=== PATIENT | male | born 1950 | race Caucasian/White ===

== ENCOUNTER 2018-12-10 09:54 | Emergency (ER) | payer MEDICARE ==
[~2018-12-10] VITALS: Ht 170.2 cm; Wt 77.1 kg
--- NOTE | 2018-12-10 10:00 | NUR ---
BIBRA 89 C/O R LEG WEAKNESS x 2DAYS. GLF LAST NIGHT AND THIS MORNING. AA/OX4, BREATHING EVEN AND UNLABORED, NO SOB NOTED. ATTACHED TO THE TRAINING OFFICER, CHANGED INTO GOWN. NO DSITRESS NOTED.
--- NOTE | 2018-12-10 10:02 | NUR ---
IV LINE ESTABLISHED, BLOOD DRAWN AND SENT TO LAB. URINAL GIVEN TO PATIENT FOR URINE COLLECTION, PER PATIENT "UNABLE TO GO AT THIS TIME"
[2018-12-10 10:12] LABS: BASOPHILS % (AUTO) 0.5 % (0.0-2.0); EOSINOPHILS % (AUTO) 1.7 % (0.0-6.0); HEMATOCRIT 50 % (39-51); HEMOGLOBIN 16.8 g/dL (13.5-17.5); LYMPHOCYTES # (AUTO) 2.3 /CMM (0.8-4.8); LYMPHOCYTES % (AUTO) 25.6 % (20.0-44.0); MEAN CORPUSCULAR HGB CONC 34 g/dl (31.0-36.0); MEAN CORPUSCULAR VOLUME 87 fL (80-96); MONOCYTES # (AUTO) 0.8 /CMM (0.1-1.30); MONOCYTES % (AUTO) 8.7 % (2.0-12.0); NEUTROPHILS # (AUTO) 5.7 /CMM (1.8-8.9); NEUTROPHILS % (AUTO) 63.5 % (43.0-81.0); PLATELET COUNT (AUTO) 218 /CMM (150-450); RED BLOOD CELL COUNT(AUTO) 5.71 MIL/uL (4.5-6.0)
[2018-12-10 10:21] LABS: CALCIUM, SERUM 8.8 mg/dL (8.5-10.1); CREATININE 1.3 mg/dL (0.6-1.3)
[2018-12-10 10:26] LABS: ALBUMIN 3.6 g/dL (3.4-5.0); BILIRUBIN,DIRECT 0.1 mg/dL (0.0-0.2); BILIRUBIN,TOTAL 0.6 mg/dL (0.2-1.0); TOTAL PROTEIN, SERUM 7.3 g/dL (6.4-8.2)
--- NOTE | 2018-12-10 11:04 | NUR ---
Patient does not wish to proceed with medical care recommended by Dr. Villagran. Patient given information related to possible complications, up to and including , which could occur as a result of leaving the hospital at this time. Patient verbalizes understanding of risks involved due to leaving against medical advice. Patient has signed AMA form.
[2018-12-10 11:09] VITALS: BP 176/93
== END 2018-12-10 11:10 | disposition left against medical advice (07) ==
LOC: ER 09:55
DX: R53.1 Weakness (principal); M25.551 Pain in right hip; R51 Headache; R42 Dizziness and giddiness; I10 Essential (primary) hypertension; E11.9 Type 2 diabetes mellitus without complications; W18.39XA Other fall on same level, initial encounter; Y93.89 Activity, other specified; Y92.89 Other specified places as the place of occurrence of the external cause; Y99.8 Other external cause status
CPT/HCPCS: 36415; 70450-TC; 71045-TC; 73502; 80048-TC; 80076-TC; 84484-TC; 85025-TC; 85730-TC

== ENCOUNTER 2021-05-03 10:17 | Inpatient (IN) | payer MEDICARE ==
[~2021-05-03] VITALS: Ht 170.2 cm; Wt 63.7 kg
--- NOTE | 2021-05-03 10:17 | NUR ---
PT [id number] HOME, FOUND IN FLOOR UNABLE TO GET UP/UNABLE TO PROVIDE SELF CARE. PT IS AAOX3, NOT IN RESPIRATORY DISTRESS, HOOKED TO BOOT LINER MAKER, KEPT RESTED AND COMFORTABLE. WILL CONTINUE TO MONITOR.
--- NOTE | 2021-05-03 10:50 | NUR ---
PT IS BACK FROM THE CT SCAN.
--- NOTE | 2021-05-03 10:55 | NUR ---
IV LINE ESTABLISHED BLOOD DRAWN AND SENT TO LAB.
[2021-05-03] MEDS ORDERED: IV NS 0.9% 1,000 ML BAG IV ONE (11:00)
--- NOTE | 2021-05-03 11:02 | NUR ---
URINAL GIVEN UNABLE TO PROVIDE URINE SPECIMEN THIS TIME.
[2021-05-03] MEDS ORDERED: GLIP2.5T3 PO (11:04)
[2021-05-03] MEDS ORDERED: LOSA25TA27 PO (11:04)
[2021-05-03] MEDS ORDERED: BICT1TAB PO (11:04)
[2021-05-03] MEDS ORDERED: SITA50TA PO (11:04)
--- NOTE | 2021-05-03 11:07 | NUR ---
URINE SPECIMEN COLLECTED AND SENT TO LAB.
[2021-05-03 11:39] LABS: BILIRUBIN,URINE MODERATE (NEGATIVE); COLOR,URINE DARK YELLOW (YELLOW); LEUKOCYTE ESTERASE ,URINE NEGATIVE (NEGATIVE); NITRITE, URINE NEGATIVE (NEGATIVE); PH,URINE 5.5 (5.0-8.0); PROTEIN,URINE 100 mg/dl (NEGATIVE); UGLUCOSE NEGATIVE (NEGATIVE)
[2021-05-03 11:40] LABS: BASOPHILS % (AUTO) 0.1 % (0.0-2.0); EOSINOPHILS % (AUTO) 0.2 % (0.0-6.0); HEMATOCRIT 50 % (39-51); HEMOGLOBIN 16.1 g/dL (13.5-17.5); LYMPHOCYTES # (AUTO) 0.9 K/uL (0.8-4.8); LYMPHOCYTES % (AUTO) 13.3 % (20.0-44.0); MEAN CORPUSCULAR HGB CONC 32 g/dl (31.0-36.0); MEAN CORPUSCULAR VOLUME 88 fL (80-96); MONOCYTES # (AUTO) 0.7 K/uL (0.1-1.30); NEUTROPHILS # (AUTO) 5.1 K/uL (1.8-8.9); NEUTROPHILS % (AUTO) 76.4 % (43.0-81.0); PLATELET COUNT (AUTO) 124 K/uL (150-450); RED BLOOD CELL COUNT(AUTO) 5.63 MIL/uL (4.5-6.0); WHITE BLOOD COUNT (AUTO) 6.7 K/uL (4.3-11.0)
[2021-05-03 11:54] LABS: SERUM AMMONIA < 10 umol/L (11-32)
[2021-05-03 11:56] LABS: ALANINE AMINOTRANSFERASE 39 U/L (12-78); ALBUMIN 3.3 g/dL (3.4-5.0); ALKALINE PHOSPHATASE 82 U/L (46-116); ASPARTATE AMINOTRANSFERASE 26 U/L (15-37); BILIRUBIN,DIRECT 0.9 mg/dL (0.0-0.2); BILIRUBIN,TOTAL 2.7 mg/dL (0.2-1.0); CARBON DIOXIDE 22 mmol/L (21-32); CHLORIDE 101 mmol/L (98-107); GLUCOSE 171 mg/dL (74-106); POTASSIUM 3.7 mmol/L (3.5-5.1); SODIUM SERUM 137 mmol/L (136-145); TOTAL PROTEIN, SERUM 6.8 g/dL (6.4-8.2); UREA NITROGEN, BLOOD 44 mg/dL (7-18)
[2021-05-03 11:58] LABS: ALCOHOL, BLOOD < 3 mg/dL (0-0)
[2021-05-03 12:25] LABS: RBC,URINE NONE SEEN /HPF (0-2); WBC,URINE 0-2 /HPF (0-3)
[2021-05-03 12:26] LABS: BACTERIA,URINE Rare /HPF (None Seen); SQUAMOUS EPITHELIAL CELL,UR Rare /HPF (None Seen)
[2021-05-03 12:42] LABS: THYROID STIMULATING HORMONE 4.737 uIU/mL (0.358-3.74)
--- NOTE | 2021-05-03 13:39 | NUR ---
[facility] CALLED SOAP INSPECTOR PAGED.
[2021-05-03] MEDS ORDERED: Z GUARD REMEDY 4 OZ OINT TP PRN (14:30)
[2021-05-03] MEDS ORDERED: ACETAMINOPHEN 325 MG TABLET PO PRN (14:30)
[2021-05-03] MEDS ORDERED: ONDANSETRON HCL/PF 4 MG/2 ML VIAL IVP PRN (14:30)
--- NOTE | 2021-05-03 14:57 | NUR ---
PER NURSING LINING BASTER. NO SITTER. DONT TRANSFER.
--- NOTE | 2021-05-03 15:04 | NUR ---
PER HOUSE SUP PT WILL BE ADMITTED NEXT SHIFT IN ROOM 326-1
--- NOTE | 2021-05-03 18:44 | NUR ---
Kristen sherman in ED - 05/03/21 at 1845 by CASSANDRA TROPONIN [phone]. NOTIFIED DENA ALLEN.
--- NOTE | 2021-05-03 18:45 | NUR ---
TROPONIN 0.493. NOTIFIED DENA ARANDA.
--- NOTE | 2021-05-03 19:46 | NUR ---
MRSA SWAB COLLECTED AND SENT TO LAB. PATIENT'S BELONGINGS LIST DONE.
[2021-05-03] MEDS ORDERED: DEXTROSE 50%-WATER 50 ML DISP.SYRIN IV PRN (20:00)
--- NOTE | 2021-05-03 20:03 | NUR ---
REPORT GIVEN TO NAHED ON THIRD FOOR. RM 326
--- NOTE | 2021-05-03 20:25 | NUR ---
PT WAS TRANSFERRE TO THIRD FLOOR UNDER ACLS
[2021-05-03 20:40] VITALS: BP 128/92
[2021-05-03] MEDS: HEPARIN SODIUM, PORCINE 5000 UNITS/1 ML VIAL SQ SCH (21:59)
[2021-05-03] MEDS: BLOOD SUGAR DIAGNOSTIC 1 EACH STRIP IN SCH (22:19)
[2021-05-03] MEDS: INSULIN REGULAR, HUMAN 100 UNIT/ML 3 ML VIAL SQ PRN (22:20)
--- NOTE | 2021-05-03 23:30 | NUR ---
Patient arrived to [facility] at 2030. A&Ox3, VS as follows: BP 128/92, HR 83, RR 19, Temp 97.6, O2 96% on RA and pt. denies pain. Patient does appear to have labored breathing though denies being SOB and O2 96% on RA. Put NC at bedside for PRN 2L if needed. Pt. weight 140.4 and appears cachexic is on 5150 hold for gravely disabled - pt. is disheveled and toenails overgrown and very dirty. Reports living alone on second story apartment, gets food delivered to house but reports not really having a support system despite brother living in [place]. Pupils equal and reactive to light. Severe weakness to BLE, mild weakness BUE. Fine crackles in base of lung otherwise clear. Heart rate and rhythm regular. Bowel sounds hypoactive. Reports last BM was day prior 05/02. Urine dark yellow and clear can use urinal. No s/s of hypo or hyperglycemic reactions. Denies chest pain. Patient requests to be DNR code status, will endorse to f/u with attending MD. Fine chopped diet d/t patient has no teeth. Fully vaccinated for covid but wishes not to receive flu or PNA vaccine. Reports only hx as DM2, htn, and HIV +. Patient has dry discolored skin to feet, scattered scabs to bilateral shins, skin tear to R knee, redness to navel/umbilicus, and scab to R hip. Wound care consult ordered. Patient oriented to unit protocols, call light, and bed controls. Educated to conserve energy after NSTEMI and maintain bedrest. Pt. agreed. Sitter d/t 5150 hold.
--- NOTE | 2021-05-03 23:35 | NUR ---
Patient requests to be DNR but FC until attending confirms and order placed. *amendment from initial assessment*
[2021-05-04 00:11] VITALS: BP 107/80
[2021-05-04 04:00] VITALS: BP 154/97
[2021-05-04 04:38] VITALS: BP 154/97
--- NOTE | 2021-05-04 06:07 | NUR ---
Patient has been A&Ox3, VSS overnight. SR in 70s and 80s overnight. Tried to get out of bed x1 but bed alarm went off for safety and staff was to assist patient too weak to even transfer to BSc with staff assist -pt. also educated about bedrest for cardiac energy conservation. Bed in lowest position, brakes locked, bed alarm turned back on. LAC #18G still patent and flushed. Denies any distress, looks SOB at times when awake though O2 sats are mid 90s -PRN O2 at bedside as needed.
[2021-05-04 06:21] LABS: BASOPHILS % (AUTO) 0.3 % (0.0-2.0); EOSINOPHILS % (AUTO) 0.5 % (0.0-6.0); HEMATOCRIT 50 % (39-51); LYMPHOCYTES # (AUTO) 1.1 K/uL (0.8-4.8); LYMPHOCYTES % (AUTO) 16.1 % (20.0-44.0); MEAN CORPUSCULAR HGB CONC 32 g/dl (31.0-36.0); MEAN CORPUSCULAR VOLUME 89 fL (80-96); MONOCYTES # (AUTO) 0.7 K/uL (0.1-1.30); NEUTROPHILS # (AUTO) 4.8 K/uL (1.8-8.9); NEUTROPHILS % (AUTO) 73.1 % (43.0-81.0); PLATELET COUNT (AUTO) 113 K/uL (150-450); RED BLOOD CELL COUNT(AUTO) 5.63 MIL/uL (4.5-6.0); WHITE BLOOD COUNT (AUTO) 6.6 K/uL (4.3-11.0)
[2021-05-04] MEDS: BLOOD SUGAR DIAGNOSTIC 1 EACH STRIP IN SCH ×4 (06:39→21:22)
[2021-05-04 07:02] LABS: ALANINE AMINOTRANSFERASE 34 U/L (12-78); ALKALINE PHOSPHATASE 85 U/L (46-116); ASPARTATE AMINOTRANSFERASE 24 U/L (15-37); BILIRUBIN,TOTAL 2.8 mg/dL (0.2-1.0); CALCIUM, SERUM 8.8 mg/dL (8.5-10.1); CARBON DIOXIDE 23 mmol/L (21-32); CHLORIDE 103 mmol/L (98-107); CREATININE 1.9 mg/dL (0.6-1.3); GLUCOSE 97 mg/dL (74-106); MAGNESIUM 2.3 mg/dL (1.8-2.4); POTASSIUM 3.9 mmol/L (3.5-5.1); SODIUM SERUM 137 mmol/L (136-145); TOTAL PROTEIN, SERUM 6.4 g/dL (6.4-8.2); UREA NITROGEN, BLOOD 42 mg/dL (7-18)
--- NOTE | 2021-05-04 08:08 | NUR ---
MS RN OPENING NOTES RECEIVED PATIENT IN BED, AWAKE, A/O X2, ON 5150 HOLD. PATIENT ON ROOM AIR; BREATHING EVEN AND UNLABORED AT THIS TIME; NO SOB NOTED. NO COMPLAINS OF PAIN. IV ACCESS AT LAC #18 PRESENT AND INTACT; SL. SAFETY PRECAUTIONS IN PLACE; BED IN LOW POSITION AND LOCKED, RAILS UP X2, CALL LIGHT WITHIN REACH. WILL CONTINUE TO MONITOR PATIENT.
--- NOTE | 2021-05-04 08:09 | NUR ---
TELE NOTES PATIENT IS ON TOOL AND CUTTER GRINDER WITH A CURRENT READING OF SR 86
[2021-05-04] MEDS: ASPIRIN EC 81 MG TABLET.DR PO SCH (08:34)
[2021-05-04] MEDS: HEPARIN SODIUM, PORCINE 5000 UNITS/1 ML VIAL SQ SCH ×2 (08:35→21:00)
[2021-05-04] MEDS: FAMOTIDINE/PF INJ 20 MG/2 ML VIAL IV SCH (08:37)
[2021-05-04 09:00] LABS: CHOLESTEROL 135 mg/dL (<200); HDL CHOLESTEROL 38 mg/dL (40-60); LDL 81 mg/dL (0-99); TRIGLYCERIDES 107 mg/dL (30-150)
[2021-05-04 09:24] VITALS: BP 149/76
--- NOTE | 2021-05-04 09:40 | NUR ---
CLINICAL OUTCOMES MANAGER NOTES ASKED PATIENT ON MULTIPLE OCCASIONS TO PUT LEADS BACK ON FOR TELE MONITORING. PATIENT REFUSES TELE MONITORING. PATIENT STATES HE DOES NOT CARE, WANTS TO GO HOME AND NEEDS HIS CLOTHES.
--- NOTE | 2021-05-04 10:51 | NUR ---
SS Consult: SS consult for poor living conditions, unable to care for self. Pt. Is a 70-year-old male. Pt. demonstrates adequate insight to the reason for hospitalization. Per pt., he/she was brought to hospital by ambulance. Pt. was oriented x3, alert, and cooperative. During interview, pt. was capable of following directions, made appropriate eye-contact, and appeared unkept, as evidenced by: messy hair. Pt.s speech was at a normal rate. Pt.s mood was elevated. SW explored pt.s hx of mental health and substance abuse. Pt. reported no hx of mental health, substance abuse, suicidal or homicidal ideation. Pt. denies auditory hallucinations, visual hallucinations, paranoia, or delusions. SW explored pt.s living situation. Per pt., he lives alone [[address] [place], [place] [id number] Per pt., he reports having adequate support from family, but they live on the [facility]. Pt. stated that he can care for self at home but needs a walker. Pt. stated that he will be buying one soon. Pt. mentioned that he drives himself around and does not have a caregiver. Pt. expressed that he wants to go home once discharged. Plan: SW provided available resources and pt. accepted. SW will be making an APS report due to self-neglect and no caregiver. Resources Provided: ABUSE PREVENTION: ELDER ABUSE HOTLINE (22/11) ADULT PROTECTIVE SERVICES HOTLINE LONG-TERM CARE [facility] Region AREA ON AGING (HOTLINE) ADULT DAY HEALTH CARE CARE CENTERS: Private pay or Medi-jared funded adult day care [place] Adult Day [facility] , [facility] Services , [facility] Adult Care Center , [facility] Adult [facility] Health Care , [facility] Adult Day Health Care , [facility] Adult [facility]care Center , [facility] , [place] [facility] , [place] ALZHEIMERS DISEASE/DEMENTIA: Alzheimers Association Helpline [facility] Chapter www.alz.org/[facility] Department of Aging www.lacity.org Family Caregiver [place] www.caregiver.org [place] Caregiver Resources Center/Family Support www.[facility].org CANCER RESOURCES: [place] Cancer Society www.cancer.org Cancer Support Community www.CancerSupportVvsb.org: CancerCare www.cancercare.org [facility] Cancer Support Center www.[facility].org [facility] HEALTH ASSOCIATIONS: AARP www.aarp.org ALS Association (ask for Nery) www.als.org [place] Diabetes Association www.diabetes.org [place] Heart Association www.heart.org Singapore[place] Lung Association www.lungusa.org Singaporean Parkinson Disease Association www.apdaparkinson.org Singaporean Archer , www.redcross.org Arthritis Foundation www.arthritis.org Crohns & Colitis Foundation of Singaporean www.ccfa.org/chapters/carri National Multiple Sclerosis Society www.nationalmssociety.org Myasthenia Gravis Foundation www.myasthenia-ca.org National Stroke Association www.stroke.org CONSERVATORSHIP & GUARDIANSHIP: AARP Nydia Cardenas Legal Services Center for Health Care Rights Eldercare Information and Referral Hand Straightener [facility]: [facility] Bar Referral Service [facility] Legal Services Office of the Public Guardian [place] EYESIGHT DISORDER RESOURCES: [place] Macular Degeneration Foundation [facility] www.[facility].org GRIEF AND BEREAVEMENT RESOURCES: The Gathering Place , [facility] THE THURMAN Connection , [facility] Bereavement Center , [place] HEARING DISORDER RESOURCES: [place] Telephone Access Program Deaf and Disabled Telecommunications Program www.ddtp.[facility].ca.gov HearRx Hearing Centers ([place]) Better Hearing Systems , [place] GLAD ([facility] Agency on Deafness) V/ TTY; Behavioral School Counselors , [facility] -low income hearing aid assistance www.Nexttpromedica defiance regional hospitalringfoundation.org [place] Hearing Care , [place] HELP AT HOME CAREGIVER SUPPORT: In Home Support Services (Must have Medi-Jared to be eligible) *Ask for a list of agencies that provide services to assist with care in the home. Local Senior Centers also have listings of care providers. HOME SAFETY MODIFICATIONS AND EQUIPMENT: Senior centers have additional referrals. [place] Housing and Community Investment Dept. Handyworker Program (low income) or Visit http://hcidla.[facility].org/pei-xccwfk-tg for more information National Seating and Mobility and/or ; Forever Active www.CanatuverSmartPill.SurveyGizmo Stay Home Safe www.Stayhomesafe.SurveyGizmo LIFE ALERT RESPONSE SYSTEM: förderbar GmbH. Die Fördermittelmanufaktur Services 287-964-1906 www. Coremetrics Life Alert 248-272-8223 www.Shanghai Xikui [employer] Technology Life Station [phone] www.NotaryActation.SurveyGizmo Safe Return 332-790-2637 www.alz.or/safereturn Cell Phones for Seniors www.Villij MEALS AND FOOD PROGRAMS: [place] Meals on Wheels [phone] [place] Meals on Wheels [phone] [facility] [phone] [place] to the Homebound [phone] [place] to the Homebound [phone] [facility] to the Homebound [phone] [facility] to the Homebound [phone] Brain Kye Driscoll [phone] [facility] [phone] ONE Generation [phone] [facility] [phone] [facility] [place] [phone] Meals on Wheels [phone] For all ages: $6.85/ meal w side. Delivered M-F from 10 am-1pm. Application and payment is done over the phone. Frozen meals available for weekends. Emergency Food [facility] [phone] [facility] Director Cloud Transformation [phone] [facility] [phone] [facility]- Brown bag lunches [phone] [facility] [phone] MEAL/GROCERY DELIVERY PROGRAMS: [facility] Clare Gourmet Meals [phone]- [facility] [phone]- [facility] Magic Kitchen [phone] Moms Meals [phone] (ask Marshall for Discount Select grocery stores may provide delivery. MEDICAL INSURANCE SUPPORT SERVICES: Center for Health Care Rights [phone] Health Insurance Counseling/Advocacy Programs (HICAP)-Must have Medicare. Offers counseling for Medi-Jared eligibility [phone] Department of Public Director Cloud Transformation [phone] www.[facility].ca.gov Medicare [phone] www.socialsecurity.org Social Security [phone] SENIOR ACTIVITY PROGRAMS: *Contact a local senior center, adult school, recreation facility or community [facility] for education, fitness, recreation, and social programs. Aquatic Therapy and Adapted Exercise programs through [facility] [phone] Encore at [facility] [phone] www.[facility]/encore U- Senior Friends [phone] [place] Senior Programs [phone] www.oasisnet.org Suddenly 65 www.zyptklao35.SurveyGizmo SENIOR CENTERS: [facility] [phone] [facility] [place] [phone] [facility] [phone] [facility] [phone] [facility] [phone] [facility] [phone] [facility] [phone] [facility] [phone] [facility] [phone] [facility] [phone] [facility] [phone] [facility] [phone] [facility] [phone] TRANSPORTATION: Local Guardian [facility] may have applications for transportation programs and additional resources. ACCESS Services [phone] Transportation for seniors and disabled persons 7 days a week requiring 254 hr. advance reservation. Must apply and register for program marvin eligible. CITY RIDE [phone] or [phone] Transportation for seniors and persons with ADA card/metro disabled card in the [facility]. M-F only. Must register for services. ONE GENERATION [phone] Serves 65 years + in conjunction with city ride program. Must be registered with both programs. A to B Transport [phone] Provides wheelchair/gurney van service. Adult Medical Transport [phone] Accepts [facility]-jared with prior authorization. Care Van [phone] Provides wheelchair Transport. [facility] Wide Transportation [phone] Provides gurney service Gentle Care [phone] Gurney Transport. All Town Transportation [phone] wheelchair & gurney transport D Transportation [phone] wheelchair & gurney transport [place] Non-Emergency Transport [phone] wheelchair & gurney transport Independent Living Center [phone] Short Term Transportation primarily for adults with disabilities on social security income. Nominal fee may apply and a reservation is required. [facility] Cab [phone] or [phone] [facility] [phone] [place] [address] Services [phone] For additional programs & services VETERANS RESOURCES: Submissions for Aid and Attendance should be done directly to Federal VA office locatd at : [address] [facility] [phone] National Caregiver Support Line [phone] Jared [facility] Veterans Services Field Office [phone] [place] Department of Affairs [phone] Pension Information [phone]
--- NOTE | 2021-05-04 11:22 | NUR ---
NUCLEAR POWER PLANT ENGINEER NOTES PATIENT REFUSES DVT PUMPS TO BE APPLIED. CHARGE NURSE MADE AWARE
--- NOTE | 2021-05-04 13:01 | NUR ---
ANABELLE reached out to Dr. Goodwin to see pt. He stated that Dr. Gay from Psych will see pt. later today.
--- NOTE | 2021-05-04 14:33 | NUR ---
PT REFUSED ECHOCARDIOGRAM. RN WAS ADVISED.
--- NOTE | 2021-05-04 14:40 | NUR ---
PHP MYSQL DEVELOPER NOTES PATIENT REFUSED ECHOCARDIOGRAM
[2021-05-04 16:04] VITALS: BP 145/106
--- NOTE | 2021-05-04 18:54 | NUR ---
MS RN CLOSING NOTES PATIENT REMAINS IN BED, AWAKE, A/O X3, ON 5150 HOLD, REALLY WANTS TO GO HOME. PATIENT ON ROOM AIR; BREATHING EVEN AND UNLABORED AT THIS TIME; NO SOB NOTED. NO COMPLAINS OF PAIN. REFUSES TELE MONITORING. IV ACCESS AT LAC #18 PRESENT AND INTACT; SL. ALL NEEDS ATTENDED DURING THE DAY. SAFETY PRECAUTIONS IN PLACE; BED IN LOW POSITION AND LOCKED, RAILS UP X2, CALL LIGHT WITHIN REACH. WILL ENDORSE TO FIELD MACHINIST NURSE FOR CAMILLE.
--- NOTE | 2021-05-04 19:49 | NUR ---
MILLER HELPER DISTILLERY OPENING NOTES RECEIVED PT IN BED, ASLEEP, AWAKENS TO VERBAL STIMULI. AOx2-3. ON RA AND TOLERATING WELL. NO SOB NOTED. NO S/SX OF RESPIRATORY DISTRESS NOTED. IV ACCESS IN LAC #20. IV IS INTACT, PATENT, AND FLUSHING WELL. TELE MONITOR REFUSED PER DAY NURSE. WILL ATTEMPT TO EDUCATE PATIENT. SAFETY PRECAUTIONS IN PLACE: BED IN LOWEST, LOCKED POSITION, SIDERAILS UPx2, AND BRAKES ON. TABLE AND CALL LIGHT WITHIN REACH. WILL CONTINUE TO MONITOR.
[2021-05-04 20:45] VITALS: BP 145/86
--- NOTE | 2021-05-04 21:22 | NUR ---
DOCTOR ELEONORA AT BEDSIDE, ASSESSING PATIENT, PATIENT IS ANGRY AND REPEATS "HE WANTS TO SLEEP. LEAVE ME ALONE". ANGRY HOSTILE AND CONFUSED
[2021-05-05 01:25] VITALS: BP 123/92
[2021-05-05 04:47] VITALS: BP 135/91
[2021-05-05] MEDS: BLOOD SUGAR DIAGNOSTIC 1 EACH STRIP IN SCH ×4 (06:35→22:05)
--- NOTE | 2021-05-05 06:44 | NUR ---
ELASTIC ATTACHER OVERLOCK CLOSING NOTES PT IN BED, AWAKE. AOx2-3. ON RA AND TOLERATING WELL. NO SOB NOTED. NO S/SX OF RESPIRATORY DISTRESS NOTED. IV ACCESS IN LAC #20. IV IS INTACT, PATENT, AND FLUSHING WELL. TELE MONITOR REFUSED. ALL NEEDS MET. PT KEPT CLEAN AND DRY. SAFETY PRECAUTIONS IN PLACE: BED IN LOWEST, LOCKED POSITION, SIDERAILS UPx2, AND BRAKES ON. TABLE AND CALL LIGHT WITHIN REACH. WILL ENDORSE TO ONCOMING SHIFT FOR CAMILLE.
--- NOTE | 2021-05-05 07:44 | NUR ---
MS RN OPENING NOTES RECEIVED PATIENT SEATED IN BED, AWAKE, A/O X2, ON 5150 HOLD, WANTS TO GO HOME. PATIENT ON ROOM AIR; BREATHING EVEN AND UNLABORED AT THIS TIME; SLIGHT SOB BUT SAYS HE IS OK. NO COMPLAINS OF PAIN. IV ACCESS AT LAC #18 PRESENT AND INTACT; SL. SAFETY PRECAUTIONS IN PLACE; BED IN LOW POSITION AND LOCKED, RAILS UP X2, CALL LIGHT WITHIN REACH. WILL CONTINUE TO MONITOR PATIENT.
--- NOTE | 2021-05-05 07:51 | NUR ---
WOUND CARE CONSULT: PT REFUSED SKIN ASSESSMENT EXCEPT FOR LIMITED ASSESSMENT OF RT KNEE WHICH PRESENTS WITH DRY SCRATCH/ABRASION, PRESENT ON ADMISSION. NO DRAINAGE, TENDERNESS OR ERYTHEMA NOTED. ADMISSION PHOTOS INDICATE EXTREMELY LONG TOENAILS. DPM CONSULT REQUESTED FROM DR HAMPAPUR. ALLEN IN AGREEMENT WITH PLAN OF CARE.
[2021-05-05] MEDS: risperiDONE 1 MG TABLET PO SCH ×2 (08:13→20:33)
[2021-05-05] MEDS: FAMOTIDINE/PF INJ 20 MG/2 ML VIAL IV SCH (08:13)
[2021-05-05] MEDS: ASPIRIN EC 81 MG TABLET.DR PO SCH (08:13)
[2021-05-05] MEDS: HEPARIN SODIUM, PORCINE 5000 UNITS/1 ML VIAL SQ SCH ×2 (08:20→20:41)
[2021-05-05 08:51] LABS: BASOPHILS % (AUTO) 0.2 % (0.0-2.0); EOSINOPHILS % (AUTO) 0.4 % (0.0-6.0); HEMATOCRIT 52 % (39-51); HEMOGLOBIN 16.8 g/dL (13.5-17.5); LYMPHOCYTES # (AUTO) 1.5 K/uL (0.8-4.8); MEAN CORPUSCULAR HGB CONC 33 g/dl (31.0-36.0); MEAN CORPUSCULAR VOLUME 89 fL (80-96); MONOCYTES # (AUTO) 0.6 K/uL (0.1-1.30); MONOCYTES % (AUTO) 8.1 % (2.0-12.0); NEUTROPHILS # (AUTO) 5.4 K/uL (1.8-8.9); NEUTROPHILS % (AUTO) 71.3 % (43.0-81.0); PLATELET COUNT (AUTO) 122 K/uL (150-450); RED BLOOD CELL COUNT(AUTO) 5.79 MIL/uL (4.5-6.0); WHITE BLOOD COUNT (AUTO) 7.5 K/uL (4.3-11.0)
[2021-05-05 08:53] LABS: CALCIUM, SERUM 9.5 mg/dL (8.5-10.1); CARBON DIOXIDE 19 mmol/L (21-32); CHLORIDE 102 mmol/L (98-107); CREATININE 1.9 mg/dL (0.6-1.3); GLUCOSE 121 mg/dL (74-106); MAGNESIUM 2.7 mg/dL (1.8-2.4); PHOSPHORUS 3.9 mg/dL (2.5-4.9); SODIUM SERUM 138 mmol/L (136-145); UREA NITROGEN, BLOOD 45 mg/dL (7-18)
--- NOTE | 2021-05-05 18:57 | NUR ---
MS RN CLOSING NOTES PATIENT REMAINS IN BED, AWAKE, A/O X2, ON 5150 HOLD, WANTS TO GO HOME. PATIENT ON ROOM AIR; BREATHING EVEN AND UNLABORED DURING SHIFT. NO COMPLAINS OF PAIN. IV ACCESS AT L HAND G # 22 PRESENT AND INTACT; SL. ALL NEEDS ATTENDED DURING THE DAY. SAFETY PRECAUTIONS IN PLACE; BED IN LOW POSITION AND LOCKED, RAILS UP X2, CALL LIGHT WITHIN REACH. WILL ENDORSE TO REEL WORKER NURSE FOR CAMILLE.
[2021-05-05 20:00] VITALS: BP 134/87
[2021-05-06 04:00] VITALS: BP 129/76
--- NOTE | 2021-05-06 06:28 | NUR ---
RN NOTES: PATIENT REMAINS IN BED, AWAKE, A/O X2, ON 5150 HOLD, NO ACUTE DISTRESS NOTED, WANTS TO GO HOME. PATIENT ON ROOM AIR; BREATHING EVEN AND UNLABORED DURING SHIFT. NO COMPLAINS OF PAIN. IV ACCESS AT L HAND G # 22 PRESENT AND INTACT SL. ALL NEEDS ATTENDED DURING THE DAY. SAFETY PRECAUTIONS IN PLACE, 1:1 SITTER AT BED SIDE FOR PT. SAFETY ,CALL LIGHT WITHIN REACH. WILL ENDORSE TO DAY NURSE FOR CONTUITY WITH CARE.
[2021-05-06] MEDS: INSULIN REGULAR, HUMAN 100 UNIT/ML 3 ML VIAL SQ PRN ×2 (06:58→22:10)
[2021-05-06] MEDS: BLOOD SUGAR DIAGNOSTIC 1 EACH STRIP IN SCH ×4 (06:59→22:08)
--- NOTE | 2021-05-06 07:25 | NUR ---
MS RN OPENING NOTE RECEIVED PATIENT ON BED, ALERT/ORIENTED X 2-3. PT ABLE TO MAKE NEEDS KNOWN. WITH SITTER AT BEDSIDE. PATIENT CURRENTLY ON 5150 HOLD. PT STABLE ON ROOM AIR, WITH EQUAL AND UNLABORED BREATHING. WITH LEFT HAND IV ACCESS G 22, ON SALINE LOCK PATENT AND INTACT. SAFETY MEASURES ENSURED WITH CALL LIGHT WITHIN REACH, SIDE RAILS UP X 2, BED LOCKED IN LOW POSITION. WILL CONTINUE TO MONITOR PATIENT
[2021-05-06] MEDS: risperiDONE 1 MG TABLET PO SCH ×2 (09:29→21:52)
[2021-05-06] MEDS: ASPIRIN EC 81 MG TABLET.DR PO SCH (09:29)
[2021-05-06] MEDS: FAMOTIDINE (20 MG) 20 MG TABLET PO SCH (09:29)
[2021-05-06] MEDS: HEPARIN SODIUM, PORCINE 5000 UNITS/1 ML VIAL SQ SCH ×2 (09:33→21:52)
--- NOTE | 2021-05-06 10:27 | NUR ---
APS Report Intake #[id number]
--- NOTE | 2021-05-06 17:00 | NUR ---
MS RN NOTE PATIENT WITH ORDER FOR DISCHARGE BUT UNABLE TO STAND ON HIS OWN. DR. MILLS NOTIFIED WITH ORDER FOR PT RE-EVALUATION PRIOR TO DISCHARGE. WILL CONTINUE TO MONITOR PATIENT.
[2021-05-06] MEDS: FUROSEMIDE 20 MG TABLET PO SCH (18:19)
[2021-05-06] MEDS: CARVEDILOL 3.125 MG TABLET PO SCH (18:19)
--- NOTE | 2021-05-06 18:45 | NUR ---
MS RN CLOSING NOTE PATIENT ON BED, ALERT/ORIENTED X 2-3. PT ABLE TO MAKE NEEDS KNOWN. WITH SITTER AT BEDSIDE. PT STABLE ON ROOM AIR, WITH EQUAL AND UNLABORED BREATHING. REMOVED IV ACCESS. COVERED WITH DRY DRESSING. PATIENT FOR PT RE-EVALUATION ORDERED. PATIENT SEEN BY DR. PRINCE WITH MEDICATION ORDERS BUT PATIENT REFUSED TO TAKE IT. VERBALIZED UNDERSTANDING OF REPERCUSSIONS OF REFUSING MEDICATIONS. SAFETY MEASURES ENSURED WITH CALL LIGHT WITHIN REACH, SIDE RAILS UP X 2, BED LOCKED IN LOW POSITION. WILL CONTINUE TO MONITOR PATIENT
--- NOTE | 2021-05-06 19:25 | NUR ---
MS RN OPENING NOTES PATIENT LAYING AWAKE IN BED. A/OX2-3 PATIENT WITH REGULAR AND UNLABORED BREATHING ON ROOM AIR TOLERATED WELL. NO SIGNS AND SYMPTOMS OF DISTRESS NOTED. NO COMPLAINS OF PAIN OR DISCOMFORT AT THIS TIME. SAFETY PRECAUTIONS ENFORCED WITH BED LOCKED AND AT LOWEST POSITION. CALL LIGHT WITHIN REACH AT ALL TIMES WILL CONTINUE TO MONITOR PATIENT.
[2021-05-07] MEDS: BLOOD SUGAR DIAGNOSTIC 1 EACH STRIP IN SCH ×5 (06:37→22:00)
--- NOTE | 2021-05-07 07:54 | NUR ---
MS VASQUEZ OPENING NOTES PATIENT LAYING AWAKE IN BED. A/OX2-3 PATIENT WITH REGULAR AND UNLABORED BREATHING ON ROOM AIR TOLERATED WELL. NO SIGNS AND SYMPTOMS OF DISTRESS NOTED. NO COMPLAINS OF PAIN OR DISCOMFORT AT THIS TIME. SAFETY PRECAUTIONS ENFORCED WITH BED LOCKED AND AT LOWEST POSITION. CALL LIGHT WITHIN REACH AT ALL TIMES WILL CONTINUE TO MONITOR PATIENT. Addendum: 05/07/21 at 0755 by FRANCISCO WALL RN MS VASQUEZ CLOSING NOTES
--- NOTE | 2021-05-07 08:00 | NUR ---
RN OPENING NOTE PT IN BED COMFORTABLY. NO DISTRESS NOTED. NO PAIN NOTED. SAFETY MEASURES IN PLACE. SIDE RAILS RAISED. BED LOWERED. CALL LIGHT WITHIN REACH. WILL CONTINUE TO MONITOR.
[2021-05-07] MEDS: CARVEDILOL 3.125 MG TABLET PO SCH ×2 (09:00→17:19)
[2021-05-07] MEDS: ASPIRIN EC 81 MG TABLET.DR PO SCH (09:00)
[2021-05-07] MEDS: FUROSEMIDE 20 MG TABLET PO SCH (09:00)
[2021-05-07] MEDS: risperiDONE 1 MG TABLET PO SCH ×2 (09:00→21:19)
[2021-05-07] MEDS: HEPARIN SODIUM, PORCINE 5000 UNITS/1 ML VIAL SQ SCH ×2 (09:00→21:21)
[2021-05-07] MEDS: FAMOTIDINE (20 MG) 20 MG TABLET PO SCH (09:00)
--- NOTE | 2021-05-07 11:23 | NUR ---
ANABELLE received call from APS workerPancho requesting if pt. was still in house and DC plan. ANABELLE addressed Pancho's questions. Pancho stated she will try to visit patient or speak with them over the phone. Noted. ANABELLE will remain available as needed.
[2021-05-07] MEDS: INSULIN REGULAR, HUMAN 100 UNIT/ML 3 ML VIAL SQ PRN (17:19)
--- NOTE | 2021-05-07 19:48 | NUR ---
RN CLOSING NOTE PT IN BED COMFORTABLY. NO DISTRESS NOTED. NO PAIN NOTED. SAFETY MEASURES IN PLACE. SIDE RAILS RAISED. BED LOWERED. CALL LIGHT WITHIN REACH. REPORT GIVEN TO NIGHT NURSE FOR CAMILLE
[2021-05-07 20:00] VITALS: BP 128/79
--- NOTE | 2021-05-07 20:00 | NUR ---
EMBEDDED SOFTWARE DEVELOPER NOTES PT REFUSING TO HAVE TELE MONITOR ON. EXPLAINED TO PT IMPORTANCE OF TELE MONITORING IN HIS POC BUT PT STILL REFUSED. WILL CONTINUE TO MONITOR.
--- NOTE | 2021-05-07 22:00 | NUR ---
PHYSICIST LIGHT AND OPTICS NOTES PT REFUSING TO HAVE BS CHECKED. EXPLAINED TO PT IMPORTANCE OF BS CHECK IN HIS POC BUT PT STILL REFUSED. WILL CONTINUE TO MONITOR.
[2021-05-08] VITALS: BP 123/85
[2021-05-08 04:00] VITALS: BP 128/82
--- NOTE | 2021-05-08 06:49 | NUR ---
MS RN NOTES AWAKE & RESPONSIVE. NOT IN ANY DISTRESS. NO SOB NOTED. DENIES ANY PAIN OR DISCOMFORT AT THIS TIME. AM CARE DONE. MONITORED ACCORDINGLY. CALL LIGHT WITHIN REACH. BED IN LOWEST POSITION. SR UP X 3 WITH BED ALARM ON FOR SAFETY. WILL ENDORSE TO NEXT SHIFT.
[2021-05-08] MEDS: BLOOD SUGAR DIAGNOSTIC 1 EACH STRIP IN SCH ×4 (07:28→21:35)
--- NOTE | 2021-05-08 07:30 | NUR ---
RN OPENING NOTES PT IN BED AWAKE, A&O X2-3. NO PAIN VERBALIZED AT THIS TIME. EQUAL CHEST EXPANSION WITH NO S/S OF RESPIRATORY DISTRESS. SAFETY MEASURES IN PLACE: SIDE RAILS RAISED X2, BED LOWEST POSITION, CALL LIGHT WITHIN REACH. WILL CONTINUE TO MONITOR PATIENT THROUGHOUT SHIFT.
[2021-05-08 08:22] VITALS: BP 121/86
[2021-05-08] MEDS: FUROSEMIDE 20 MG TABLET PO SCH (09:29)
[2021-05-08] MEDS: FAMOTIDINE (20 MG) 20 MG TABLET PO SCH (09:30)
[2021-05-08] MEDS: risperiDONE 1 MG TABLET PO SCH ×2 (09:30→21:00)
[2021-05-08] MEDS: CARVEDILOL 3.125 MG TABLET PO SCH ×2 (09:30→17:22)
[2021-05-08] MEDS: ASPIRIN EC 81 MG TABLET.DR PO SCH (09:30)
[2021-05-08] MEDS: HEPARIN SODIUM, PORCINE 5000 UNITS/1 ML VIAL SQ SCH ×2 (09:33→21:00)
[2021-05-08 12:06] VITALS: BP 123/89
[2021-05-08] MEDS: INSULIN REGULAR, HUMAN 100 UNIT/ML 3 ML VIAL SQ PRN (12:25)
[2021-05-08 16:08] VITALS: BP 114/86
--- NOTE | 2021-05-08 18:59 | NUR ---
RN CLOSING NOTES PT IN BED AWAKE, A&O X2-3. NO PAIN VERBALIZED AT THIS TIME. EQUAL CHEST EXPANSION WITH NO S/S OF RESPIRATORY DISTRESS. PT REFUSES TO HAVE IV ACCESS. SAFETY MEASURES IN PLACE: SIDE RAILS RAISED X2, BED LOWEST POSITION, CALL LIGHT WITHIN REACH. WILL ENDORSE TO ROUGHING MILL OPERATOR NURSE FOR CAMILLE
[2021-05-08 20:00] VITALS: BP 122/92
--- NOTE | 2021-05-08 20:27 | NUR ---
TELE OPENING RN NOTE PATIENT AWAKE IN BED. A/OX3. NO S/S OF DISTRESS, BREATHING SYMMETRICAL. TELE PVC 110. SAFETY MEASURES IN PLACE: BED AT LOWEST POSITION, RAILS UP X2, CALL LI WITHIN REACH. WILL CONTINUE TO MONITOR. Addendum: 05/08/21 at 2029 by JOÃO RAMIREZ RN WRONG PATIENT.
--- NOTE | 2021-05-08 20:30 | NUR ---
TELE OPENING RN NOTE PATIENT ASLEEP IN BED. A/OX3. NO S/S OF DISTRESS, BREATHING SYMMETRICAL. TELE IS STILL BEING REFUSED PER PREVIOUS SHIFT NURSE'S ENDORSEMENT. WILL ATTEMPT TO RE-EDUCATE PATIENT AND ENCOURAGE HIM TO USE TELE MONITOR. SAFETY MEASURES IN PLACE: BED AT LOWEST POSITION, RAILS UP X2, CALL LI WITHIN REACH. WILL CONTINUE TO MONITOR.
[2021-05-09] VITALS: BP 131/74
--- NOTE | 2021-05-09 06:07 | NUR ---
DIRECTOR OF CAPITAL GIVING CLOSING NOTE PATIENT IS ASLEEP IN BED. A/OX2. NO S/S OF DISTRESS; BREATHING SYMMETRICAL. PATIENT WAS EDUCATED AND ENCOURAGED TO WEAR A TELE MONITOR, BUT HE CONTINUED TO DECLINE. PATIENT WAS MONITORED CLOSELY, HAVING MOVED MY BED TO HIS ROOM'S DOORWAY. PATIENT EXHIBITED NO S/S OF DISTRESS; NO ADVENTITIOUS DEVELOPMENTS OCCURRED. SAFETY MEASURES IN PLACE: BED AT LOWEST POSITION, RAILS UP X2, CALL LI WITHIN REACH. WILL ENDORSE TO NEXT SHIFT FOR [place].
[2021-05-09 06:12] VITALS: BP 130/78
[2021-05-09] MEDS: BLOOD SUGAR DIAGNOSTIC 1 EACH STRIP IN SCH ×4 (06:38→21:27)
--- NOTE | 2021-05-09 07:25 | NUR ---
SECURITIES SALES ASSOCIATE OPENING NOTES RECEIVED PT ASLEEP IN BED, EASILY AROUSABLE. HOB ELEVATED. A/O X2. ABLE TO MAKE NEEDS KNOWN, NO C/O PAIN AT THIS TIME. ON ROOM AIR, BREATHING EVEN AND UNLABORED. PT REFUSED TELE-MONITOR DESPITE EDUCATING THE IMPORTANCE OF IT, TELE-BOX ON STANDBY. PT HAS NO IV ACCESS AND REFUSING IV INSERTION. SAFETY MEASURES IN PLACE: BED AT LOWEST LOCKED POSITION, SIDE-RAILS UP X2, BED ALARM ON AND CALL LI WITHIN REACH. WILL CONTINUE TO MONITOR PATIENT ACCORDINGLY.
[2021-05-09 08:00] VITALS: BP 104/60
[2021-05-09] MEDS: ASPIRIN EC 81 MG TABLET.DR PO SCH (08:25)
[2021-05-09] MEDS: FUROSEMIDE 20 MG TABLET PO SCH (08:25)
[2021-05-09] MEDS: FAMOTIDINE (20 MG) 20 MG TABLET PO SCH (08:25)
[2021-05-09] MEDS: CARVEDILOL 3.125 MG TABLET PO SCH ×2 (08:26→17:21)
[2021-05-09] MEDS: risperiDONE 1 MG TABLET PO SCH ×2 (08:27→21:00)
[2021-05-09] MEDS: HEPARIN SODIUM, PORCINE 5000 UNITS/1 ML VIAL SQ SCH ×2 (08:34→21:00)
[2021-05-09] MEDS: INSULIN REGULAR, HUMAN 100 UNIT/ML 3 ML VIAL SQ PRN (11:49)
[2021-05-09 16:00] VITALS: BP 136/90
--- NOTE | 2021-05-09 18:28 | NUR ---
RN NOTES SPOKED TO PT REGARDING WHO CAN BRING HIS HOME MED "[facility]" AND HE STATED THAT NO ONE CAN BRING HIM AT THIS TIME. HE ALSO COULDN'T REMEMBER TELEPHONE NUMBERS OF HIS FAMILY MEMBERS AND FRIENDS AT THIS TIME.
--- NOTE | 2021-05-09 18:50 | NUR ---
MORTICIAN INVESTIGATOR CLOSING NOTES PT IN BED AWAKE WATCHING TV AT THIS TIME. A/O X2-3. ABLE TO MAKE NEEDS KNOWN. ON ROOM AIR, BREATHING EVEN AND UNLABORED, NO SOB NOTED DURING SHIFT. PT STILL REFUSED TELE-MONITOR DESPITE EDUCATING THE IMPORTANCE OF IT, TELE-BOX ON STANDBY. PT HAS NO IV ACCESS AND REFUSING IV INSERTION. ALL DUE NURSING CARE RENDERED AND MAINTAINED. SAFETY MEASURES IN PLACED: BED AT LOWEST LOCKED POSITION, SIDE-RAILS UP X2, BED ALARM ON AND CALL LI WITHIN REACH. WILL ENDORSE [place] TO PROVIDER RELATIONS REPRESENTATIVE NURSE.
--- NOTE | 2021-05-09 19:21 | NUR ---
RN OPENING NOTE PATIENT IN BED, AWAKE. A/O X 2 AT THIS TIME. PATIENT IS ON RA, TOLERATING WELL. NO SOB OR RESPIRATORY DISTRESS. TELE MONITOR NOT ON PATIENT REFUSING. NO IV ACCESS NOTED EITHER. NO REPORTS OF ANY PAIN. SAFETY MEASURES IN PLACE: BED LOCKED AND IN LOWEST POSITION, CALL LIGHT WITHIN REACH, SIDE RAILS UP, BED ALARM ON. ENCOURAGED PATIENT NOT TO GET UP ON HIS OWN. WILL MONITOR PATIENT CLOSELY.
--- NOTE | 2021-05-09 21:27 | NUR ---
RN NOTE PATIENT REFUSED HEPARIN, RISPERIDONE, AND ACCU CHECK. EDUCATION PROVIDED REGARDING MEDICATION AND THE NEED FOR BS MONITORING. PATIENT CONTINUES TO REFUSE.
--- NOTE | 2021-05-10 06:46 | NUR ---
RN CLOSING NOTE PATIENT IN BED, AWAKE. PATIENT REFUSED ACCUCHECK AT THIS TIME. RISK AND BENEFITS EXPLAINED, CONTINUES TO REFUSE AND YELLS. PATIENT 95% ON RA, TOLERATES WELL. PATIENT HAS TELE MONITOR ON STAND BY AND NO IV ACCESS PATIENT CONTINUES TO REFUSE. SAFETY MEASURES IMPLEMENTED. EDUCATION REGARDING POC GIVEN. WILL ENDORSE TO DAY SHIFT NURSE FOR [place].
[2021-05-10] MEDS: BLOOD SUGAR DIAGNOSTIC 1 EACH STRIP IN SCH ×4 (07:30→22:00)
--- NOTE | 2021-05-10 07:45 | NUR ---
TELE/RN OPENING NOTE RECEIVED PATIENT IN BED, AWAKE. PATIENT IS STILL REFUSING ACCUCHECK AT THIS TIME. RISK AND BENEFITS EXPLAINED, CONTINUES TO REFUSE AND YELLS. PATIENT HAS TELE MONITOR ON STAND BY AND NO IV ACCESS PATIENT CONTINUES TO REFUSE. SAFETY MEASURES IN PLACED: BED LOCKED ON LOWEST POSITION, SIDE RAILS UPX2, CALL LIGHT WITHIN REACH. WILL CONTINUE TO MONITOR.
[2021-05-10 08:43] VITALS: BP 130/85
[2021-05-10] MEDS: HEPARIN SODIUM, PORCINE 5000 UNITS/1 ML VIAL SQ SCH ×2 (08:47→20:24)
[2021-05-10] MEDS: risperiDONE 1 MG TABLET PO SCH ×2 (08:47→20:20)
[2021-05-10] MEDS: CARVEDILOL 3.125 MG TABLET PO SCH ×2 (08:48→16:55)
[2021-05-10] MEDS: ASPIRIN EC 81 MG TABLET.DR PO SCH (08:48)
[2021-05-10] MEDS: FAMOTIDINE (20 MG) 20 MG TABLET PO SCH (08:48)
[2021-05-10] MEDS: FUROSEMIDE 20 MG TABLET PO SCH (08:48)
--- NOTE | 2021-05-10 13:09 | NUR ---
TELE/RN NOTES- REFUSED INSULIN COVERAGE ACCUCHECK RESULT IS 152 WITH 2 UNITS REGULAR INSULIN BUT PATIENT REFUSED. EXPLAINED BENEFITS, STILL REFUSED. WILL MONITOR.
[2021-05-10 15:08] LABS: BASOPHILS % (AUTO) 0.2 % (0.0-2.0); EOSINOPHILS % (AUTO) 0.1 % (0.0-6.0); HEMATOCRIT 51 % (39-51); HEMOGLOBIN 16.3 g/dL (13.5-17.5); LYMPHOCYTES # (AUTO) 0.7 K/uL (0.8-4.8); LYMPHOCYTES % (AUTO) 12.7 % (20.0-44.0); MEAN CORPUSCULAR HGB CONC 32 g/dl (31.0-36.0); MEAN CORPUSCULAR VOLUME 89 fL (80-96); MONOCYTES # (AUTO) 0.5 K/uL (0.1-1.30); MONOCYTES % (AUTO) 8.6 % (2.0-12.0); NEUTROPHILS # (AUTO) 4.2 K/uL (1.8-8.9); NEUTROPHILS % (AUTO) 78.4 % (43.0-81.0); PLATELET COUNT (AUTO) 105 K/uL (150-450); RED BLOOD CELL COUNT(AUTO) 5.78 MIL/uL (4.5-6.0); WHITE BLOOD COUNT (AUTO) 5.4 K/uL (4.3-11.0)
[2021-05-10 16:00] VITALS: BP 127/78
--- NOTE | 2021-05-10 19:14 | NUR ---
TELE/RN CLOSING NOTE PATIENT IN BED, AWAKE. PATIENT HAS TELE MONITOR ON STAND BY AND NO IV ACCESS PATIENT CONTINUES TO REFUSE. ALL NEEDS MET. KEPT PATIENT COMFORTABLE. SAFETY MEASURES IN PLACED: BED LOCKED ON LOWEST POSITION, SIDE RAILS UPX2, CALL LIGHT WITHIN REACH. WILL ENDORSE TO THE NEXT SHIFT FOR [place].
--- NOTE | 2021-05-10 19:35 | NUR ---
RN OPENING NOTES RECEIVED PT IN BED, AWAKENS TO VERBAL STIMULI. AOx2-3, ABLE TO MAKE NEEDS KNOWN. ON RA AND TOLERATING. NO SOB NOTED. NO S/SX OF RESPIRATORY DISTRESS NOTED. PATIENT REFUSES IV ACCESS AND TELE MONITOR. SAFETY PRECAUTIONS IN PLACE: BED IN LOWEST, LOCKED POSITION, SIDERAILS UPx2, AND BRAKES ON. TABLE AND CALL LIGHT WITHIN REACH. WILL CONTINUE TO MONITOR.
[2021-05-10 20:00] VITALS: BP 126/76
[2021-05-11] VITALS: BP 120/71
--- NOTE | 2021-05-11 06:49 | NUR ---
RN CLOSING NOTES PT IN BED, ASLEEP, AWAKENS TO VERBAL STIMULI. AOx2-3, ABLE TO MAKE NEEDS KNOWN. ON RA AND TOLERATING. NO SOB NOTED. NO S/SX OF RESPIRATORY DISTRESS NOTED. PATIENT REFUSES IV ACCESS AND TELE MONITOR. ALL NEEDS MET. PT KEPT CLEAN AND DRY. SAFETY PRECAUTIONS IN PLACE: BED IN LOWEST, LOCKED POSITION, SIDERAILS UPx2, AND BRAKES ON. TABLE AND CALL LIGHT WITHIN REACH. WILL ENDORSE TO ONCOMING SHIFT FOR CAMILLE.
[2021-05-11] MEDS: BLOOD SUGAR DIAGNOSTIC 1 EACH STRIP IN SCH ×4 (07:50→21:25)
--- NOTE | 2021-05-11 07:54 | NUR ---
RN Note Patient received in bed AO x 2-3, able to responds all stimuli. Respiratory even and unlabored on room air, no SOB observed. Skin is warm to touch, keep clean/dry. Patient refused quality assurance monitor. Call light within reach, kept elevated HOB for ensure airway and lower bed position for safety. Will continue to monitor.
[2021-05-11 07:57] LABS: BASOPHILS % (AUTO) 0.2 % (0.0-2.0); EOSINOPHILS % (AUTO) 0.6 % (0.0-6.0); HEMATOCRIT 48 % (39-51); HEMOGLOBIN 15.3 g/dL (13.5-17.5); LYMPHOCYTES % (AUTO) 21.4 % (20.0-44.0); MEAN CORPUSCULAR HGB CONC 32 g/dl (31.0-36.0); MEAN CORPUSCULAR VOLUME 88 fL (80-96); MONOCYTES # (AUTO) 0.6 K/uL (0.1-1.30); NEUTROPHILS # (AUTO) 3.1 K/uL (1.8-8.9); NEUTROPHILS % (AUTO) 64.8 % (43.0-81.0); PLATELET COUNT (AUTO) 110 K/uL (150-450); RED BLOOD CELL COUNT(AUTO) 5.45 MIL/uL (4.5-6.0); WHITE BLOOD COUNT (AUTO) 4.8 K/uL (4.3-11.0)
[2021-05-11 08:00] VITALS: BP 124/78
[2021-05-11] MEDS: risperiDONE 1 MG TABLET PO SCH ×2 (09:26→20:02)
[2021-05-11] MEDS: ASPIRIN EC 81 MG TABLET.DR PO SCH (09:26)
[2021-05-11] MEDS: CARVEDILOL 3.125 MG TABLET PO SCH ×3 (09:26→16:51)
[2021-05-11] MEDS: FUROSEMIDE 20 MG TABLET PO SCH (09:27)
[2021-05-11] MEDS: FAMOTIDINE (20 MG) 20 MG TABLET PO SCH (09:27)
[2021-05-11 09:30] LABS: CALCIUM, SERUM 7.8 mg/dL (8.5-10.1); CARBON DIOXIDE 25 mmol/L (21-32); CHLORIDE 104 mmol/L (98-107); CREATININE 1.7 mg/dL (0.6-1.3); GLUCOSE 100 mg/dL (74-106); PHOSPHORUS 3.4 mg/dL (2.5-4.9); POTASSIUM 4.3 mmol/L (3.5-5.1); SODIUM SERUM 139 mmol/L (136-145); UREA NITROGEN, BLOOD 35 mg/dL (7-18)
--- NOTE | 2021-05-11 12:08 | NUR ---
Patient refused BS check
[2021-05-11 16:00] VITALS: BP 107/92
--- NOTE | 2021-05-11 18:37 | NUR ---
RN Closing Note Patient in bed AO x 2-3, confused. No distress observed, respiratory even and unlabored on room air. Skin is warm to touch, keep clean/dry. Kept elevated HOB for ensure airway and lower position of the bed for safety. Patient refused to check BS and carpenter foreman. Call light within reach, all needs met. will endorse shift supervisor melting.
[2021-05-11 20:00] VITALS: BP 125/56
[2021-05-12] VITALS: BP 130/79
[2021-05-12 04:00] VITALS: BP 125/78
--- NOTE | 2021-05-12 07:25 | NUR ---
RN OPENING NOTES RECEIVED PATIENT IN BED AWAKE, A&OX3 WITH SOME CONFUSION. PATIENT IS ON RA WITH EQUAL CHEST EXPANSION AND NO SOB NOTED. NO COMPLAINT OF PAIN VERBALIZED AT THIS TIME. PATIENT REFUSES IV ACCESS AND TELE MONITOR. SAFETY PRECAUTIONS AND FALL PRECAUTIONS IN PLACE: BED IN LOWEST, LOCKED POSITION, SIDE RAILS UP X2, TABLE AND CALL LIGHT WITHIN REACH. WILL CONTINUE TO MONITOR PATIENT.
[2021-05-12] MEDS: BLOOD SUGAR DIAGNOSTIC 1 EACH STRIP IN SCH ×4 (07:30→21:57)
[2021-05-12 08:00] VITALS: BP 126/79
[2021-05-12] MEDS: ASPIRIN EC 81 MG TABLET.DR PO SCH (09:12)
[2021-05-12] MEDS: FUROSEMIDE 20 MG TABLET PO SCH (09:12)
[2021-05-12] MEDS: CARVEDILOL 3.125 MG TABLET PO SCH ×2 (09:12→16:46)
[2021-05-12] MEDS: risperiDONE 1 MG TABLET PO SCH ×2 (09:12→21:00)
[2021-05-12] MEDS: FAMOTIDINE (20 MG) 20 MG TABLET PO SCH (09:12)
[2021-05-12 16:00] VITALS: BP 124/75
--- NOTE | 2021-05-12 18:42 | NUR ---
RN CLOSING NOTES PATIENT IN BED AWAKE, A&OX2-3 WITH SOME CONFUSION. PATIENT IS ON RA WITH NO SOB NOTED. NO COMPLAINT OF PAIN VERBALIZED AT THIS TIME. ALL ORDERS CARRIED OUT TODAY. SAFETY PRECAUTIONS AND FALL PRECAUTIONS IN PLACE: BED IN LOWEST, LOCKED POSITION, SIDE RAILS UP X2, TABLE AND CALL LIGHT WITHIN REACH. WILL ENDORSE TO THE WAGON DRILLER NURSE FOR CAMIL[place].
[2021-05-12 20:00] VITALS: BP 125/85
--- NOTE | 2021-05-12 20:35 | NUR ---
TELERN ASLEEP, COMBATIVE WHEN TOUCH. UNCOOPERATIVE. 93% ON RA TRIED TO PUT OXYGEN, FIGHTS BACK. NEEDS CLOSER OBSERVATION.
--- NOTE | 2021-05-12 22:15 | NUR ---
TELERN BLOOD SUGAR 120. VITAL SIGNS STABLE.
[2021-05-13] VITALS: BP 128/85
--- NOTE | 2021-05-13 01:59 | NUR ---
telern EYES CLOSE COMBATIVE WHEN TOUCH. NO RESP DISTRESS. 02 STANDBY.
[2021-05-13 04:00] VITALS: BP 116/56
--- NOTE | 2021-05-13 07:03 | NUR ---
MSRN FULLY AWAKE, REFUSED ACCUCHECKS FOR NOW. AGREED AM CARE.
--- NOTE | 2021-05-13 07:30 | NUR ---
LICSW OPENING NOTES RECEIVED PATIENT ON BED, RESTING AND A/O X2. ON ROOM AIR TOLERATING WELL. NO SOB NOTED. NOT IN DISTRESS. WITH NO COMPLAINTS OF PAIN AND DISCOMFORT AT THIS TIME. WITH NO IV ACCESS. PATIENT REFUSED TO HAVE AN IV LINE INSERTED. SAFETY MEASURES IN PLACED. CALL LIGHT WITHIN REACH. BED ON LOWEST LOCKED POSITION, SIDE RAILS UP X2. WILL CONTINUE TO MONITOR.
[2021-05-13 08:00] VITALS: BP 130/80
[2021-05-13] MEDS: FUROSEMIDE 20 MG TABLET PO SCH (08:42)
[2021-05-13] MEDS: ASPIRIN EC 81 MG TABLET.DR PO SCH (08:42)
[2021-05-13] MEDS: FAMOTIDINE (20 MG) 20 MG TABLET PO SCH (08:42)
[2021-05-13] MEDS: risperiDONE 1 MG TABLET PO SCH ×2 (08:43→21:39)
[2021-05-13] MEDS: BLOOD SUGAR DIAGNOSTIC 1 EACH STRIP IN SCH ×4 (08:44→22:00)
[2021-05-13] MEDS: CARVEDILOL 3.125 MG TABLET PO SCH ×2 (08:44→18:07)
[2021-05-13] MEDS: GLUCERNA SHAKE 237 ML CAN PO SCH ×2 (15:35→16:40)
[2021-05-13 16:00] VITALS: BP 133/93
--- NOTE | 2021-05-13 19:43 | NUR ---
LOBBYIST CLOSING NOTES PATIENT ON BED, RESTING AND A/O X2. ON ROOM AIR TOLERATING WELL. NO SOB NOTED. NOT IN DISTRESS. WITH NO COMPLAINTS OF PAIN AND DISCOMFORT AT THIS TIME. WITH NO IV ACCESS. PATIENT REFUSED TO HAVE AN IV LINE INSERTED. SAFETY MEASURES IN PLACED. CALL LIGHT WITHIN REACH. BED ON LOWEST LOCKED POSITION, SIDE RAILS UP X2. FOR DISCHARGE TO [facility]. AWAITING FOR BASKET TURNER BY EMR. WILL ENDORSE TO NEXT SHIFT FOR [place].
--- NOTE | 2021-05-13 20:00 | NUR ---
CUSTOMER ACCOUNTS ADVISOR NOTES RECEIVED ON BED A/O X2,BREATHING NON LABORED,NO SKIN ISSUES,D/C TO SNF AT [facility],AWAITING TO BE TECHNICAL OPERATIONS MANAGER BY AMBULANCE FOR TRANSPORT.NOT IN ANY FORM OF DISTRESS.
--- NOTE | 2021-05-13 20:30 | NUR ---
MECHANICAL SPREADER OPERATOR NOTES REFUSING TELE MONITOR,ON BED A/X2,AMBULANCE CAME TO CAPITAL PROJECT ENGINEER PATIENT,APPARENTLY UPON CHECKING ON PCR RESULT IT WAS POSITIVE,CHARGE NURSE MADE,[facility] DUE TO COVID POSITIVE,MD MADE AWARE,DISCHARGE ON HOLD,NURSING CORSETS SALESPERSON MADE AWARE,WILL TRANSFER PATIENT TO [facility] OR [facility] FOR [facility].
--- NOTE | 2021-05-13 22:00 | NUR ---
AVIONICS TEST TECHNICIAN NOTES ACCU-CHECK BLOOD SUGAR 111,NO INSULIN COVERAGE.
--- NOTE | 2021-05-13 22:15 | NUR ---
CHOKE REAMER NOTES TRANFERRED TO [facility] FOR COVID POSITIVE TODAY
[2021-05-13 22:30] VITALS: BP 125/87
[2021-05-14] VITALS: BP 115/71
--- NOTE | 2021-05-14 01:52 | NUR ---
TRANSFERRED FROM [facility] AT 2230 Patient transferred from [facility] room 327 to [place] room 207. Patient Covid Rapid test came back Positive. Started on Contact/Droplet precaution with eye shield protection. No IV peripheral line, No leads in place for tele monitor, patient refused despite of education, risk and benefits explained. Patient tolerating room air, denies chest pain. Skin check reassessment done. Notified Dr. Dubose, informed of patient's held dc to SNF d/t Covid Rapid test positive and patients uncooperative behavior refusing IV line insertion and monitoring in Tele.
[2021-05-14 04:00] VITALS: BP 130/82
--- NOTE | 2021-05-14 06:30 | NUR ---
END OF SHIFT REPORT Patient is A/O x2 episode of confusion. Oxygen sat 97% on RA. Sinus rhythm in the Tele monitor. Afebrile. Denies chest pain, no cough. Coccyx redness, patient is incontinent. Mepilex foam applied, wound care consult for eval. Will endorse to oncoming RN. Covid Rapid test positive. Maintained Isolation.
[2021-05-14] MEDS: BLOOD SUGAR DIAGNOSTIC 1 EACH STRIP IN SCH ×4 (06:44→22:39)
[2021-05-14] MEDS: INSULIN REGULAR, HUMAN 100 UNIT/ML 3 ML VIAL SQ PRN (06:44)
[2021-05-14 08:00] VITALS: BP_SYST 107; BP_SYST 124; BP_DIAS 75; BP_DIAS 80
[2021-05-14] MEDS: GLUCERNA SHAKE 237 ML CAN PO SCH ×2 (08:00→16:54)
--- NOTE | 2021-05-14 08:00 | NUR ---
ms rn received on bed, awake,alert,oriented x2,not in any form of distress, respirations even and unlabored,no sob noted, lungs are diminished ,abdomen soft, positive bowel sounds denies pain at this time, will monitor patient.
[2021-05-14] MEDS: ASPIRIN EC 81 MG TABLET.DR PO SCH (09:45)
[2021-05-14] MEDS: FUROSEMIDE 20 MG TABLET PO SCH (09:45)
[2021-05-14] MEDS: FAMOTIDINE (20 MG) 20 MG TABLET PO SCH (09:46)
[2021-05-14] MEDS: risperiDONE 1 MG TABLET PO SCH ×2 (09:46→20:18)
[2021-05-14] MEDS: CARVEDILOL 3.125 MG TABLET PO SCH ×2 (09:47→16:54)
[2021-05-14 09:48] LABS: BASOPHILS % (AUTO) 0.3 % (0.0-2.0); EOSINOPHILS % (AUTO) 0.3 % (0.0-6.0); HEMATOCRIT 50 % (39-51); HEMOGLOBIN 15.9 g/dL (13.5-17.5); LYMPHOCYTES # (AUTO) 0.9 K/uL (0.8-4.8); MEAN CORPUSCULAR HGB CONC 32 g/dl (31.0-36.0); MEAN CORPUSCULAR VOLUME 88 fL (80-96); MONOCYTES # (AUTO) 0.6 K/uL (0.1-1.30); MONOCYTES % (AUTO) 10.6 % (2.0-12.0); NEUTROPHILS # (AUTO) 3.7 K/uL (1.8-8.9); NEUTROPHILS % (AUTO) 70.8 % (43.0-81.0); PLATELET COUNT (AUTO) 93 K/uL (150-450); RED BLOOD CELL COUNT(AUTO) 5.69 MIL/uL (4.5-6.0); WHITE BLOOD COUNT (AUTO) 5.3 K/uL (4.3-11.0)
--- NOTE | 2021-05-14 09:53 | NUR ---
WOUND CARE CONSULT: REVIEWED CHART, NURSING DOCUMENTATION AND PHOTO WHICH INDICATES BONY SACRAL AREA. RECOMMENDATIONS MADE FOR SKIN PROTECTION. DISCUSSED WITH NURSING STAFF. PT IS UNCOOPERATIVE AT TIME. CURRENT VIJAY SCORE IS 17. MD IN AGREEMENT WITH PLAN OF CARE.
--- NOTE | 2021-05-14 09:55 | NUR ---
ms shearer breakfast served,due meds given, tolerated well.
[2021-05-14 09:58] LABS: CALCIUM, SERUM 8.2 mg/dL (8.5-10.1); CREATININE 1.3 mg/dL (0.6-1.3); POTASSIUM 3.7 mmol/L (3.5-5.1)
[2021-05-14 11:09] LABS: LYMPHOCYTES % (MANUAL) 10 % (16-48); MONOCYTES % (MANUAL) 6 % (0-11.0); NEUTROPHILS % (MANUAL) 84 (42-76)
--- NOTE | 2021-05-14 13:00 | NUR ---
ms rn on bed, so sleepy at this time.
[2021-05-14 16:00] VITALS: BP 107/75
--- NOTE | 2021-05-14 17:41 | NUR ---
ms rn on bed,no distress noted.
[2021-05-14 20:22] VITALS: BP 96/50
[2021-05-15] VITALS: BP 127/91
[2021-05-15 04:00] VITALS: BP 136/66
--- NOTE | 2021-05-15 06:50 | NUR ---
FAMILY SERVICE COUNSELOR NOTES AWAKE & RESPONSIVE. NOT IN ANY DISTRESS. NO SOB NOTED. DENIES ANY PAIN OR DISCOMFORT AT THIS TIME. ON TELE SR @ 82. AM CARE DONE. MONITORED ACCORDINGLY. CALL LIGHT WITHIN REACH. BED IN LOWEST POSITION. SR UP X 3 WITH BED ALARM ON FOR SAFETY. WILL ENDORSE TO NEXT SHIFT.
[2021-05-15 07:04] LABS: BASOPHILS % (AUTO) 0.2 % (0.0-2.0); EOSINOPHILS % (AUTO) 0.2 % (0.0-6.0); HEMATOCRIT 53 % (39-51); LYMPHOCYTES % (AUTO) 13.5 % (20.0-44.0); MEAN CORPUSCULAR HGB CONC 32 g/dl (31.0-36.0); MEAN CORPUSCULAR VOLUME 87 fL (80-96); MONOCYTES # (AUTO) 0.6 K/uL (0.1-1.30); MONOCYTES % (AUTO) 8.3 % (2.0-12.0); NEUTROPHILS # (AUTO) 5.5 K/uL (1.8-8.9); NEUTROPHILS % (AUTO) 77.8 % (43.0-81.0); PLATELET COUNT (AUTO) 104 K/uL (150-450); RED BLOOD CELL COUNT(AUTO) 6.03 MIL/uL (4.5-6.0); WHITE BLOOD COUNT (AUTO) 7.1 K/uL (4.3-11.0)
[2021-05-15] MEDS: BLOOD SUGAR DIAGNOSTIC 1 EACH STRIP IN SCH ×4 (07:30→22:13)
[2021-05-15 07:55] LABS: CALCIUM, SERUM 8.9 mg/dL (8.5-10.1); CARBON DIOXIDE 26 mmol/L (21-32); CHLORIDE 104 mmol/L (98-107); CREATININE 1.4 mg/dL (0.6-1.3); GLUCOSE 105 mg/dL (74-106); POTASSIUM 3.7 mmol/L (3.5-5.1); SODIUM SERUM 142 mmol/L (136-145); UREA NITROGEN, BLOOD 34 mg/dL (7-18)
[2021-05-15 08:00] VITALS: BP 108/67
[2021-05-15] MEDS: GLUCERNA SHAKE 237 ML CAN PO SCH ×2 (08:00→17:48)
--- NOTE | 2021-05-15 08:00 | NUR ---
RN NOTE PT IN STABLE CONDITION. WILL CONTINUE TO MONITOR.
[2021-05-15] MEDS: risperiDONE 1 MG TABLET PO SCH ×2 (09:00→21:23)
[2021-05-15] MEDS: CARVEDILOL 3.125 MG TABLET PO SCH ×2 (09:00→17:00)
[2021-05-15] MEDS: FAMOTIDINE (20 MG) 20 MG TABLET PO SCH (09:00)
[2021-05-15] MEDS: FUROSEMIDE 20 MG TABLET PO SCH (09:00)
[2021-05-15] MEDS: ASPIRIN EC 81 MG TABLET.DR PO SCH (09:00)
--- NOTE | 2021-05-15 09:00 | NUR ---
RN NOTE PT REFUSED MORNING MEDICATIONS, STATING THAT HE DID NOT WANT TO BE TOUCHED. WILL CONTINUE TO MONITOR.
[2021-05-15 12:00] VITALS: BP 112/71
[2021-05-15] MEDS ORDERED: FUROSEMIDE 40 MG/4 ML VIAL IV ONE (13:30)
[2021-05-15 16:00] VITALS: BP 116/86
--- NOTE | 2021-05-15 19:10 | NUR ---
RN NOTES RECEIVED REPORT FROM MORNING RN. PATIENT IN BED A/O X2 ABLE TO MAKE NEEDS KNOWN. WITH OXYGEN INHALATION AT 2LPM VIA NC TOLERATING WELL SATING 97%. WITH ANNE MIDLINE PATENT FLUSHES WELL. VITAL SIGNS TAKEN AND RECORDED. AFEBRILE. ALL SAFETY MEASURES IN PLACE AT ALL TIMES. CALL LIGHT WITHIN REACH. BED ON LOWEST POSITION AND LOCKED. WILL CONTINUE TO MONITOR.
--- NOTE | 2021-05-15 20:00 | NUR ---
RN NOTE PT IN STABLE CONDITION. REPORT GIVEN TO NIGHT NURSE FOR CAMILLE.
--- NOTE | 2021-05-15 22:30 | NUR ---
RN NOTES BS 98MG/DL. PATIENT COMFORTABLE IN BED. WILL CONTINUE TO MONITOR
--- NOTE | 2021-05-16 06:50 | NUR ---
RN NOTES PATIENT REMAINS IN STABLE CONDITION THE WHOLE SHIFT NO SIGNIFICANT CHANGE NO SOB NO DISTRESS NOTED AT THIS TIME. ALL DUE MEDS GIVEN ORDERED. PATIENT STILL ON OXYGEN INHALATION AT 2LPM VIA NC TOLERATING WELL SATING 97%. ALL SAFETY MEASURES IN PLACE AT ALL TIMES. HOB ELEVATED. CALL LIGHT WITHIN REACH. SIDE RAILS UP FOR SAFETY. ALL NEEDS ATTENDED. KEPT CLEAN AND DRY AT ALL TIMES. ENDORSED
--- NOTE | 2021-05-16 07:40 | NUR ---
RN OPENING NOTES RECEIVED PATIENT IN BED A/O X2 ABLE TO MAKE NEEDS KNOWN. BREATHING EVEN AND UNLABORED. NO SOB OR ANY ACUTE DISTRESS NOTED. WITH OXYGEN AT 2LPM VIA NC TOLERATING WELL SATING 97%. WITH ANNE MIDLINE PATENT FLUSHES WELL. ALL APPLICABLE ISOLATION PRECAUTIONS IN PLACE. ALL SAFETY MEASURES IN PLACE AT ALL TIMES. HOB ELEVATED.CALL LIGHT WITHIN REACH. BED ON LOWEST POSITION AND LOCKED. WILL CONTINUE TO MONITOR PATIENT ACCORDINGLY.
[2021-05-16 08:00] VITALS: BP 121/76
[2021-05-16] MEDS: BLOOD SUGAR DIAGNOSTIC 1 EACH STRIP IN SCH ×4 (08:04→22:12)
--- NOTE | 2021-05-16 08:09 | NUR ---
RN NOTES BLOOD SUGAR IS 111, NO INSULIN COVERAGE NEEDED.
[2021-05-16 08:33] LABS: CALCIUM, SERUM 8.1 mg/dL (8.5-10.1); CREATININE 1.2 mg/dL (0.6-1.3); POTASSIUM 3.4 mmol/L (3.5-5.1)
[2021-05-16] MEDS: ASPIRIN EC 81 MG TABLET.DR PO SCH (08:54)
[2021-05-16] MEDS: FAMOTIDINE (20 MG) 20 MG TABLET PO SCH (08:55)
[2021-05-16] MEDS: FUROSEMIDE 20 MG TABLET PO SCH (08:55)
[2021-05-16] MEDS: risperiDONE 1 MG TABLET PO SCH ×2 (08:55→21:33)
[2021-05-16] MEDS: CARVEDILOL 3.125 MG TABLET PO SCH ×2 (08:56→16:25)
[2021-05-16] MEDS: GLUCERNA SHAKE 237 ML CAN PO SCH ×2 (08:59→17:51)
[2021-05-16] MEDS ORDERED: MISCELLANEOUS MED 1 EA EA XX ONE (09:00)
--- NOTE | 2021-05-16 10:47 | NUR ---
RN NOTES SPOKE TO PATIENT'S BROTHER, VERITO REGARDING HIV MEDICATION. PER VERITO, HE HAS NO ACCESS TO ANY OF HIS MEDICATIONS. Addendum: 05/16/21 at 1309 by VIC ORTIZ RN SPOKE TO PATIENT'S OTHER BROTHER, MARTIN, HE STATED VERITO HAS BEEN . WHEN ATTEMPTED TO CALL BACK NUMBER ON CHART UNDER VERITO SALAMANCA TO CLARIFY WHO GAVE THE INFORMATION, THERE WAS NO INSTRUCTIONAL SPECIALIST.
[2021-05-16] MEDS ORDERED: POTASSIUM CHLORIDE 20 MEQ TAB.PRT.SR PO SCH (11:00)
[2021-05-16 12:00] VITALS: BP 106/68
[2021-05-16] MEDS: FUROSEMIDE 40 MG/4 ML VIAL IV SCH ×2 (14:29→17:51)
[2021-05-16] MEDS: INSULIN REGULAR, HUMAN 100 UNIT/ML 3 ML VIAL SQ PRN (16:39)
--- NOTE | 2021-05-16 19:03 | NUR ---
RN CLOSING NOTES PATIENT REMAINS IN STABLE CONDITION THROUGHOUT SHIFT. BREATHING EVEN AND UNLABORED. NO SOB OR ANY ACUTE DISTRESS NOTED. ON O2 2LPM VIA NC, TOLERATING WELL SAT OF 94%. ANNE MIDLINE PATENT AND INTACT, FLUSHED WELL. KEPT PATIENT CLEAN, DRY AND COMFORTABLE. ALL NEEDS MET. ALL DUE MEDS GIVEN ORDERED. BLOOD SUGAR CHECKED ON TIMELY MANNER AND INSULIN COVERAGED GIVEN PER ORDERED. ALL APPLICABLE ISOLATION PRECAUTIONS MAINTAINED. ALL SAFETY MEASURES IMPLEMENTED. HOB ELEVATED. CALL LIGHT WITHIN REACH. BED LOCKED AND IN LOWEST POSITION . CALL LIGHT WITHIN REACH OF PATIENT. WILL ENDORSE TO ONCOMING NURSE FOR CONTINUITY OF CARE.
[2021-05-16 20:00] VITALS: BP 104/66
[2021-05-17] VITALS: BP 116/77
[2021-05-17 04:00] VITALS: BP 123/58
--- NOTE | 2021-05-17 06:50 | NUR ---
RN CLOSING NOTES Patient has been stable throughout shift. A&Ox2 at baseline. Staff anticipated pt. needs. Fall risk measures in place. Pt. does however have poor appetite not wanting any supplements. No s/s of hypo or hyperglycemic reactions noted.
[2021-05-17] MEDS: BLOOD SUGAR DIAGNOSTIC 1 EACH STRIP IN SCH ×4 (07:02→22:39)
--- NOTE | 2021-05-17 07:25 | NUR ---
RN OPENING NOTES RECEIVED PATIENT ON BED, AWAKE, A/O X2 ABLE TO MAKE NEEDS KNOWN. BREATHING EVEN AND UNLABORED. NO SOB OR ANY ACUTE DISTRESS NOTED. WITH OXYGEN AT 2LPM VIA NC TOLERATING WELL SATING 97%. WITH ANNE MIDLINE INTACT AND PATENT. ISOLATION PRECAUTIONS IN PLACE. ALL SAFETY MEASURES IN PLACE.. BED LOCKED AND IN LOWEST POSITION, SR UP.CALL LIGHT PLACED WITHIN EASY REACH. WILL CONTINUE TO MONITOR PATIENT.
[2021-05-17] MEDS: CARVEDILOL 3.125 MG TABLET PO SCH ×2 (09:00→17:00)
[2021-05-17] MEDS: FUROSEMIDE 20 MG TABLET PO SCH (09:45)
[2021-05-17] MEDS: ASPIRIN EC 81 MG TABLET.DR PO SCH (09:45)
[2021-05-17] MEDS: FAMOTIDINE (20 MG) 20 MG TABLET PO SCH (09:46)
[2021-05-17] MEDS: risperiDONE 1 MG TABLET PO SCH ×2 (09:46→20:38)
[2021-05-17] MEDS: GLUCERNA SHAKE 237 ML CAN PO SCH ×2 (09:47→17:07)
[2021-05-17] MEDS ORDERED: BUMETANIDE INJ 4 MG in IV D5W 24 ML IV ONE (11:00)
[2021-05-17 12:29] LABS: CREATININE 1.3 mg/dL (0.6-1.3); POTASSIUM 3.5 mmol/L (3.5-5.1)
[2021-05-17] MEDS: INSULIN REGULAR, HUMAN 100 UNIT/ML 3 ML VIAL SQ PRN ×2 (17:04→22:38)
[2021-05-17] MEDS ORDERED: ALBUTEROL FS 2.5 MG/0.5 ML VIAL.NEB NEB PRN (18:30)
--- NOTE | 2021-05-17 18:45 | NUR ---
ANTIQUE DEALER CLOSING NOTES PATIENT RESTING ON BED, A/O X2, VERBALLY RESPONSIVE, ABLE TO MAKE NEEDS KNOWN. BREATHING EVEN AND UNLABORED. NO SOB OR ANY ACUTE DISTRESS NOTED. WITH OXYGEN AT 2LPM VIA NC TOLERATING WELL, SATTING 96%. WITH ANNE MIDLINE INTACT AND PATENT. ISOLATION PRECAUTIONS IN PLACE. SAFETY MEASURES IN PLACE.. BED LOCKED AND IN LOWEST POSITION, SR UP.CALL LIGHT PLACED WITHIN EASY REACH. WILL CONTINUE ENDORSE TO NEXT SHIFT.
[2021-05-17 20:00] VITALS: BP 126/90
[2021-05-17 21:00] VITALS: BP 126/90
[2021-05-18] VITALS: BP_SYST 118; BP_SYST 131; BP_DIAS 64; BP_DIAS 73
[2021-05-18 04:00] VITALS: BP 118/73
--- NOTE | 2021-05-18 05:58 | NUR ---
Pt. refusing AM labs -lab told to retry later once pt. is less grumpy/more awake. Patient also continues to refuse full skin check but R elbow exposed over blankets and picture of scab taken.
--- NOTE | 2021-05-18 06:18 | NUR ---
RN CLOSING NOTES Patient has been stable overnight. Saturating at 94-95% on 4L via NC. A&Ox2. SR on the monitor at 72. Is currently sleeping but easy to wake. No signs of distress. No s/s of hypo or hyperglycemic reactions noted.
[2021-05-18] MEDS: BLOOD SUGAR DIAGNOSTIC 1 EACH STRIP IN SCH ×4 (06:54→23:13)
--- NOTE | 2021-05-18 07:40 | NUR ---
RN OPENING NOTES RECEIVED PATIENT IN BED A/O X2. BREATHING EVEN AND UNLABORED. NO SOB OR ACUTE DISTRESS NOTED. WITH OXYGEN AT 2LPM VIA NC TOLERATING WELL SATURATING AT 98%. WITH ANNE MIDLINE PATENT AND INTACT. SAFETY MEASURES IN PLACE AT ALL TIMES WITH HOB ELEVATED, CALL LIGHT WITHIN REACH, BED ON LOWEST POSITION AND LOCKED. WILL CONTINUE TO MONITOR PATIENT FOR CHANGES IN CONDITION.
[2021-05-18 08:00] VITALS: BP 130/92
[2021-05-18] MEDS: FUROSEMIDE 20 MG TABLET PO SCH (09:15)
[2021-05-18] MEDS: risperiDONE 1 MG TABLET PO SCH ×2 (09:15→20:44)
[2021-05-18] MEDS: CARVEDILOL 3.125 MG TABLET PO SCH ×2 (09:16→17:00)
[2021-05-18] MEDS: ASPIRIN EC 81 MG TABLET.DR PO SCH (09:16)
[2021-05-18] MEDS: FAMOTIDINE (20 MG) 20 MG TABLET PO SCH (09:16)
[2021-05-18] MEDS: GLUCERNA SHAKE 237 ML CAN PO SCH ×2 (09:16→17:48)
[2021-05-18] MEDS: INSULIN REGULAR, HUMAN 100 UNIT/ML 3 ML VIAL SQ PRN ×2 (11:54→23:17)
[2021-05-18 12:00] VITALS: BP 121/76
[2021-05-18] MEDS ORDERED: EMTRICITABINE/TENOFOVIR 1 TAB PO SCH (15:51)
[2021-05-18 16:00] VITALS: BP 112/76
[2021-05-18 17:33] LABS: CALCIUM, SERUM 7.6 mg/dL (8.5-10.1); CREATININE 1.2 mg/dL (0.6-1.3)
[2021-05-18 17:41] LABS: POTASSIUM 2.7 mmol/L (3.5-5.1)
[2021-05-18] MEDS: RALTEGRAVIR POTASSIUM 400 MG TABLET PO SCH (17:47)
--- NOTE | 2021-05-18 17:47 | NUR ---
RN NOTE RECEIVED CRITICAL LAB VALUE OF POTASSIUM 2.7. INFORMED DR. MILLS WITH NEW ORDER POTASSIUM MEQ 80 PO X ONCE. ORDERS READ BACK AND CARRIED OUT.
[2021-05-18] MEDS ORDERED: POTASSIUM CHLORIDE 20 MEQ TAB.PRT.SR PO ONE (18:00)
--- NOTE | 2021-05-18 19:15 | NUR ---
LEASE OUT WORKER CLOSING NOTES PATIENT REMAINS IN BED, AWAKE. A/O X2. BREATHING EVEN AND UNLABORED. NO SOB OR ACUTE DISTRESS NOTED. WITH OXYGEN AT 2LPM VIA NC TOLERATING WELL SATURATING AT 98%. WITH ANNE MIDLINE PATENT AND INTACT. SAFETY MEASURES IN PLACE AT ALL TIMES WITH HOB ELEVATED, CALL LIGHT WITHIN REACH, BED ON LOWEST POSITION AND LOCKED. CALL LIGHT IS WITHIN REACH. ALL NEEDS MET THROUGHOUT SHIFT. WILL CONTINUE TO ENDORSE CONTINUITY OF CARE TO ONCOMING SHIFT.
--- NOTE | 2021-05-18 19:20 | NUR ---
TELE/RN NOTES PT AWAKE IN BED, A/OX2, ABLE TO VERBALIZE NEEDS. RESPIRATIONS EVEN/UNLABORED. HE DENIES ANY PAIN. IV SITE: ANNE MIDLINE INTACT/PATENT/FLUSHES WELL. TELE MONITOR READING SR, HR 83. PT IN NO ACUTE DISTRESS SAFETY MEASURES IN PLACE. WILL CONT TO MONITOR.
[2021-05-18] MEDS ORDERED: BUMETANIDE INJ 4 MG in IV D5W 24 ML IV ONE (19:30)
[2021-05-18 20:00] VITALS: BP 115/55
[2021-05-18] MEDS ORDERED: BUMETANIDE INJ 0.25 MG/ML VIAL ONE (23:28)
[2021-05-19] VITALS: BP 111/70
[2021-05-19 04:00] VITALS: BP 114/61
[2021-05-19] MEDS: BLOOD SUGAR DIAGNOSTIC 1 EACH STRIP IN SCH ×4 (06:32→22:00)
--- NOTE | 2021-05-19 07:15 | NUR ---
TELE/RN CLOSING NOTES PT AWAKE, ABLE TO VERBALIZE NEEDS. RESPIRATIONS EVEN/UNLABORED AT THIS TIME. PT WITH OCC EPISODES OF SOB DURING THE NIGHT. ON CONT O2 @ 5LPM VIA N/C. IV SITE ON ANNE MIDLINE INTACT/PATENT/FLUSHES WELL. TELE MONITOR READING SR, HR 74. PT IN NO ACUTE DISTRESS. SAFETY MEASURES MAINTAINED.
--- NOTE | 2021-05-19 07:30 | NUR ---
ENVIRONMENTAL AID NOTES PT IN BED, ASLEEP, EASY TO AROUSE, ALERT AND ORIENTED, NOT IN DISTRESS, CALL LIGHT WITHIN REACH, DENIES PAIN, NEEDS ATTENDED.
[2021-05-19 08:00] VITALS: BP 128/80
[2021-05-19 08:41] LABS: BASOPHILS % (AUTO) 0.1 % (0.0-2.0); HEMATOCRIT 52 % (39-51); HEMOGLOBIN 16.5 g/dL (13.5-17.5); LYMPHOCYTES # (AUTO) 0.7 K/uL (0.8-4.8); LYMPHOCYTES % (AUTO) 11.1 % (20.0-44.0); MEAN CORPUSCULAR HGB CONC 32 g/dl (31.0-36.0); MEAN CORPUSCULAR VOLUME 88 fL (80-96); MONOCYTES # (AUTO) 0.3 K/uL (0.1-1.30); MONOCYTES % (AUTO) 4.2 % (2.0-12.0); NEUTROPHILS # (AUTO) 5.3 K/uL (1.8-8.9); NEUTROPHILS % (AUTO) 84.6 % (43.0-81.0); PLATELET COUNT (AUTO) 88 K/uL (150-450); RED BLOOD CELL COUNT(AUTO) 5.95 MIL/uL (4.5-6.0); WHITE BLOOD COUNT (AUTO) 6.3 K/uL (4.3-11.0)
[2021-05-19] MEDS: FAMOTIDINE (20 MG) 20 MG TABLET PO SCH (09:47)
[2021-05-19] MEDS: risperiDONE 1 MG TABLET PO SCH ×2 (09:47→22:18)
[2021-05-19] MEDS: FUROSEMIDE 20 MG TABLET PO SCH (09:47)
[2021-05-19] MEDS: RALTEGRAVIR POTASSIUM 400 MG TABLET PO SCH ×2 (09:47→16:54)
[2021-05-19] MEDS: TENOFOVIR DISOPROXIL FUMARATE 300 MG TABLET PO SCH (09:47)
[2021-05-19] MEDS: EMTRICITABINE 200 MG CAPSULE PO SCH (09:47)
[2021-05-19] MEDS: ASPIRIN EC 81 MG TABLET.DR PO SCH (09:48)
[2021-05-19] MEDS: CARVEDILOL 3.125 MG TABLET PO SCH ×2 (09:48→16:54)
[2021-05-19] MEDS: GLUCERNA SHAKE 237 ML CAN PO SCH ×2 (10:00→17:00)
[2021-05-19 12:00] VITALS: BP 117/61
[2021-05-19 13:44] LABS: CALCIUM, SERUM 7.9 mg/dL (8.5-10.1); CREATININE 1.3 mg/dL (0.6-1.3); POTASSIUM 3.1 mmol/L (3.5-5.1)
--- NOTE | 2021-05-19 14:26 | NUR ---
ELEVATED GUARD NOTES PT SEEN BY DR. MARIE, DISCHARGE ORDER HELD FOR NOW.
[2021-05-19 16:00] VITALS: BP 126/78
[2021-05-19] MEDS ORDERED: POTASSIUM CHLORIDE 20 MEQ TAB.PRT.SR PO ONE (16:30)
[2021-05-19] MEDS: INSULIN REGULAR, HUMAN 100 UNIT/ML 3 ML VIAL SQ PRN (17:35)
--- NOTE | 2021-05-19 18:30 | NUR ---
RN VISITING NOTES PT IN BED, AWAKE, ALERT, DENIES PAIN, NOT IN DISTRESS, ON O2 AT 2LPM, ENCOURAGED INCREASED PO INTAKE, PM CARE PROVIDED, ALL NEEDS ATTENDED.
--- NOTE | 2021-05-19 19:47 | NUR ---
NURSING ADMINISTRATOR OPENING NOTES: RECEIVED PATIENT AWAKE IN BED, BED IN LOW POSITION, CALL LIGHTS WITHIN REACH, NO COMPLAIN OF PAIN AND DISCOMFORT AT THIS TIME, PATIENT IS A/OX2 ON TELE MONITORING, ON 02 INHALATION AT 2LPM SATURATING WELL, NO RESPIRATORY DISTRESS WAS OBSERVED, PATIENT KEPT CLEAN AND DRY, ALL NEEDS MET, WILL CONTINUE TO MONITOR.
[2021-05-19 20:00] VITALS: BP 117/84
[2021-05-20] VITALS: BP 121/85
--- NOTE | 2021-05-20 01:15 | NUR ---
RN NOTES: BS-103- NO INSULIN GIVEN OUT OF PARAMETER
[2021-05-20 04:00] VITALS: BP 116/71
--- NOTE | 2021-05-20 07:37 | NUR ---
BOLT MAKER CLOSING NOTES: PATIENT SLEEP IN BED COMFORTABLY, AROUSAVBLE TO VERBAL STIMULI, BED IN LOW POSITION, CALL LIGHTS WITHIN REACH, NO COMPLAIN OF PAIN AND DISCOMFORT AT THIS TIME, ON TELE MONITORING AT SR56 PATIENT WITH ANNE MIDLINE, KEPT CLEAN AND DRY, ALL NEEDS MET ENDORSE TO INCOMING SHIFT.
--- NOTE | 2021-05-20 07:43 | NUR ---
RN NOTE PATIENT RECEIVED IN BED, RESTING. PATIENT ON 2L O2 NC WITH NO SIGNS OF LABORED BREATHING AT THIS TIME. RIGHT UA MIDLINE IN PLACE. BED LOCKED AND IN LOWEST POSITION, CALL LIGHT WITHIN REACH, 3 SIDE RAILS UP. WILL CONTINUE TO MONITOR.
[2021-05-20] MEDS: BLOOD SUGAR DIAGNOSTIC 1 EACH STRIP IN SCH ×2 (07:52→11:53)
[2021-05-20] MEDS: GLUCERNA SHAKE 237 ML CAN PO SCH (07:55)
[2021-05-20 09:00] VITALS: BP 118/75
[2021-05-20] MEDS: RALTEGRAVIR POTASSIUM 400 MG TABLET PO SCH ×2 (09:00→09:39)
[2021-05-20] MEDS: FUROSEMIDE 20 MG TABLET PO SCH (09:00)
[2021-05-20] MEDS: CARVEDILOL 3.125 MG TABLET PO SCH (09:00)
[2021-05-20] MEDS: TENOFOVIR DISOPROXIL FUMARATE 300 MG TABLET PO SCH (09:39)
[2021-05-20] MEDS: EMTRICITABINE 200 MG CAPSULE PO SCH (09:39)
[2021-05-20] MEDS: risperiDONE 1 MG TABLET PO SCH (09:39)
[2021-05-20] MEDS: ASPIRIN EC 81 MG TABLET.DR PO SCH (09:40)
[2021-05-20] MEDS: FAMOTIDINE (20 MG) 20 MG TABLET PO SCH (09:40)
[2021-05-20 11:07] LABS: BASOPHILS % (AUTO) 0.1 % (0.0-2.0); EOSINOPHILS % (AUTO) 0.1 % (0.0-6.0); HEMATOCRIT 51 % (39-51); HEMOGLOBIN 16.1 g/dL (13.5-17.5); LYMPHOCYTES # (AUTO) 0.5 K/uL (0.8-4.8); LYMPHOCYTES % (AUTO) 7.5 % (20.0-44.0); MEAN CORPUSCULAR HGB CONC 32 g/dl (31.0-36.0); MEAN CORPUSCULAR VOLUME 87 fL (80-96); MONOCYTES # (AUTO) 0.3 K/uL (0.1-1.30); MONOCYTES % (AUTO) 4.2 % (2.0-12.0); NEUTROPHILS % (AUTO) 88.1 % (43.0-81.0); PLATELET COUNT (AUTO) 85 K/uL (150-450); RED BLOOD CELL COUNT(AUTO) 5.79 MIL/uL (4.5-6.0); WHITE BLOOD COUNT (AUTO) 6.8 K/uL (4.3-11.0)
[2021-05-20 11:28] LABS: CALCIUM, SERUM 7.8 mg/dL (8.5-10.1); CREATININE 1.2 mg/dL (0.6-1.3); PHOSPHORUS 1.8 mg/dL (2.5-4.9); POTASSIUM 3.4 mmol/L (3.5-5.1)
--- NOTE | 2021-05-20 13:14 | NUR ---
RN NOTE BLOOD SUGAR 158. PATIENT REFUSES INSULIN. UNCOOPERATIVE AT THIS TIME. WILL CONTINUE TO MONITOR.
[2021-05-20] MEDS ORDERED: K PHOS NEUTRAL 250 MG TABLET PO ONE (16:00)
--- NOTE | 2021-05-20 16:05 | NUR ---
RN NOTE PATIENT DISCHARGED PER ORDER. PATIENT MEDICALLY STABLE ON 2L O2 NC WITH NO LABORED BREATHING. MIDLINE REMOVED. BELONGINGS VERIFIED. PATIENT PICKED UP BY EMT. REPORT GIVEN TO BETTE AT [facility].
== END 2021-05-20 16:12 | DRG 280 ==
LOC: ER 10:21 → TELE 14:46 → TELE2 05-13 22:18
PROVIDERS: ADMIT Hospitalist; ATTEND Registered Nurse
PROC: 05H933Z Insertion of Infusion Device into Right Brachial Vein, Percutaneous Approach (ICD-10-PCS; principal; 2021-05-15)
DX: I21.4 Non-ST elevation (NSTEMI) myocardial infarction (principal); N17.0 Acute kidney failure with tubular necrosis; U07.1 COVID-19; I50.20 Unspecified systolic (congestive) heart failure; I42.9 Cardiomyopathy, unspecified; M62.82 Rhabdomyolysis; E86.0 Dehydration; Z20.822 Contact with and (suspected) exposure to COVID-19; E11.40 Type 2 diabetes mellitus with diabetic neuropathy, unspecified; D69.6 Thrombocytopenia, unspecified; E11.51 Type 2 diabetes mellitus with diabetic peripheral angiopathy without gangrene; Z79.84 Long term (current) use of oral hypoglycemic drugs; Z86.73 Personal history of transient ischemic attack (TIA), and cerebral infarction without residual deficits; Z79.899 Other long term (current) drug therapy; F29 Unspecified psychosis not due to a substance or known physiological condition; I11.0 Hypertensive heart disease with heart failure; Z91.81 History of falling; L60.3 Nail dystrophy; I25.2 Old myocardial infarction; E87.6 Hypokalemia; M62.562 Muscle wasting and atrophy, not elsewhere classified, left lower leg; M62.561 Muscle wasting and atrophy, not elsewhere classified, right lower leg
CPT/HCPCS: 36415; 70450-TC; 71045-TC; 72170-TC; 80048-TC; 80053-TC; 80061-TC; 80076-TC; 81001; 82140-TC; 82962-TC; 83735-TC; 83880; 84100-TC; 84443-TC; 84484-TC; 85025-TC; 86140-TC; 87081-TC; 87086-TC; 93307-TC; 97110-TC; 97116-TC; 97530-TC; C9803; G0378; G0480; J1644; J1815; J1940; J3490; J7030; J7050; J7060